=== PATIENT | female | born 1970 | race Caucasian/White ===

== ENCOUNTER → 2021-07-19 | Outpatient (CLI) | payer OTHER, SELFPAY ==
[2021-07-19 12:49] LABS: ALB/GLOB Ratio 0.8 RATIO (0.9-2.4); AST(SGOT) 27 U/L (15-37); Alanine Aminotransfer ALT/SGPT 53 U/L (13-56); Albumin, Serum 3.3 g/dL (3.2-5.0); Alkaline Phosphatase 96 U/L (45-117); Anion Gap 6 (5-15); BUN 10 mg/dL (7-18); BUN/Creat Ratio 12.5 RATIO (10-20); Calcium,Total 9.3 mg/dL (8.5-10.1); Chloride 103 mmol/L (98-107); EST Glomerular Filtration Rate 81 mL/min (>60); Est Glom Filt Rate - Afr Amer 98 mL/min (>60); Glucose 195 mg/dL (74-106); Potassium 4.5 mmol/L (3.5-5.1); Protein, Total 7.3 g/dL (6.4-8.2); Sodium Level 137 mmol/L (136-145)
[2021-07-19 13:19] LABS: Hemoglobin A1c 7.5 % (3.8-5.6)
== END | disposition home or self-care (01) ==
LOC: BIMLAB 07:53
DX: E11.9 Type 2 diabetes mellitus without complications (principal); E78.5 Hyperlipidemia, unspecified; I10 Essential (primary) hypertension; E55.9 Vitamin D deficiency, unspecified
CPT/HCPCS: 36415; 80053; 83036

== ENCOUNTER → 2022-03-01 | Outpatient (CLI) | payer OTHER, SELFPAY ==
[2022-03-01 07:07] LABS: Absolute Lymphocyte Count 2.39 X10^3/uL (0.83-4.51); Absolute Neutrophil Count 5.9 X10^3/uL (2.0-7.7); Basophil# 0.07 X10^3/uL; Basophil% 0.8 % (0-1); Eosinophil# 0.16 X10^3/uL; Eosinophils% 1.7 % (0-5); Hematocrit 40.9 % (37-47); Lymphocyte # 2.39 X10^3/ul (0.83-4.51); Lymphocyte % 26.1 % (19-41); Mean Corp Hgb Conc 31.8 g/dL (32-36); Mean Corpuscular Hgb 29.5 pg (27.0-32.0); Mean Platelet Vol. 10.8 fl (6.2-12.0); Monocyte# 0.52 X10^3/uL; Monocyte% 5.7 % (0-10); NRBC Flagged by Analyzer 0 % (0-5); Neutrophil # 5.89 X10^3/uL (2.7-7.7); Neutrophil % 64.4 % (47-70); Platelet Count 272 K/mm3 (150-450); RBC Distribution Width CV 12.3 % (11.6-14.6); White Blood Count 9.2 K/mm3 (4.4-11.0)
[2022-03-01 07:37] LABS: Microalbumin,Random Urine 22.5 mg/L (NO RANGE EST.)
[2022-03-01 07:41] LABS: ALB/GLOB Ratio 0.8 RATIO (0.9-2.4); AST(SGOT) 18 U/L (15-37); Alanine Aminotransfer ALT/SGPT 38 U/L (13-56); Albumin, Serum 3.1 g/dL (3.2-5.0); Alkaline Phosphatase 83 U/L (45-117); Anion Gap 9 (5-15); BUN 10 mg/dL (7-18); BUN/Creat Ratio 11.7 RATIO (10-20); Calcium,Total 8.8 mg/dL (8.5-10.1); Chloride 102 mmol/L (98-107); Cholesterol 147 mg/dL (200); Creatinine, Serum 0.86 mg/dL (0.55-1.02); EST Glomerular Filtration Rate 75 mL/min (>60); Est Glom Filt Rate - Afr Amer 90 mL/min (>60); Glucose 197 mg/dL (74-106); High Density Lipoprotein 75 mg/dL; Potassium 4.3 mmol/L (3.5-5.1); Protein, Total 7.1 g/dL (6.4-8.2); Sodium Level 138 mmol/L (136-145); Thyroid Stim Hormone (TSH) 2.94 uIU/mL (0.358-3.74); Triglycerides 153 mg/dL; Very Low Density Lipoprotein 31 mg/dL (5-40)
[2022-03-01 07:59] LABS: Vitamin B12 835 pg/mL (211-911); Vitamin D,25 Hydroxy 43.4 ng/mL
[2022-03-01 08:12] LABS: Hemoglobin A1c 8.1 % (3.8-5.6)
== END | disposition home or self-care (01) ==
PROVIDERS: PCP Family Medicine; Referring Provider Family Medicine; Visit Provider Family Medicine
DX: E11.65 Type 2 diabetes mellitus with hyperglycemia (principal); E78.5 Hyperlipidemia, unspecified; E53.8 Deficiency of other specified B group vitamins; E55.9 Vitamin D deficiency, unspecified
CPT/HCPCS: 36415; 80053; 80061; 82043; 82306; 82570; 82607; 83036; 84443; 85025

== ENCOUNTER → 2022-08-27 | Outpatient (CLI) | payer OTHER, SELFPAY ==
--- NOTE | 2022-08-27 07:25 | BI_ITS ---
MAMMOGRAPHY - BILATERAL SCREENING 3-D TOMOSYNTHESIS REASON FOR EXAM: Female, 52 years old. Routine screening PERTINENT HISTORY: No significant family history. TECHNIQUE: 2-D mammograms and 3-D Tomosynthesis of the breast (s) were performed. CAD was performed. COMPARISON: 01/14/2020 FINDINGS: The breast composition is almost entirely fat. Scattered benign calcifications are seen. No dense spiculated masses or suspicious microcalcifications are identified. No architectural distortion is identified. There is no skin thickening or retraction. There has been no significant change since the prior study. BI/SCRN MAMM (CAD)W/RAQUEL BILAT IMPRESSION: No mammographic signs of malignancy. Routine yearly mammograms recommended. ASSESSMENT CATEGORY: BIRADS Category 1: Negative. A letter regarding these results will be sent to the patient by the facility within 30 days. FOLLOW UP RECOMMENDATION: Yearly follow up mammogram recommended. (A) Approximately 10% of breast cancers are not detected by mammography. A normal mammogram should not delay biopsy of a clinically suspicious abnormality. Electronically Signed: Luis Felipe Aldridge MD at 10:25 EDT ,
== END | disposition home or self-care (01) ==
LOC: OPBI 07:24
PROVIDERS: PCP Internal Medicine; Referring Provider Internal Medicine; Visit Provider Internal Medicine
DX: Z12.31 Encounter for screening mammogram for malignant neoplasm of breast (principal)
CPT/HCPCS: 77063; 77067

== ENCOUNTER 2022-10-26 18:48 | Emergency (ER) | payer OTHER, SELFPAY ==
[2022-10-26 18:49] VITALS: BP 128/71; PULSE 102; RESP 18; TEMP 36.1; O2SAT 95; BMI 44.4
[2022-10-26] MEDS: Albuterol 2.5 MG/3 ML VIAL.NEB. INHALATION (19:17)
[2022-10-26] MEDS: Ipratropium/Albuterol Sulfate 3 ML AMPUL.NEB INHALATION (19:17)
[2022-10-26 19:18] VITALS: PULSE 102; RESP 18
[2022-10-26 19:38] VITALS: BP 135/60; PULSE 98; RESP 18; TEMP 37; O2SAT 95
--- NOTE | 2022-10-26 19:45 | RAD_ITS ---
INDICATION: cough, sob EXAMINATION/TECHNIQUE: X-RAY - XR Chest 2 Views COMPARISON: None. FINDINGS: LINES/DEVICES: None. LUNGS: No consolidation, edema or effusion. No pneumothorax. MEDIASTINUM AND CARDIOVASCULAR STRUCTURES: Cardiac silhouette not enlarged. Central airways and mediastinal contour are within normal limits. BONES AND SOFT TISSUES: Mild to moderate spinal degenerative change. RAD/Chest PA and Lateral IMPRESSION: No radiographic evidence of acute cardiopulmonary disease. Electronically Signed: David Layton MD at 20:00 EDT ,
--- NOTE | 2022-10-26 19:49 | EX.ED.DYSGE1 ---
HPI <KOJO Walls - Last Filed: 10/26/22 21:09> History of Present Illness Chief Complaint: Shortness of Breath Narrative Narrative: Presenting today due to, not feeling well. She reports that she has a scratchy throat, right-sided back and rib pain with coughing, headache, fatigue, and a cough that she has had for the past 2 days. She was around her mom in the beginning of October who was positive for COVID. She reports having chills and sweats intermittently but did not check her temperature. She reports having mild shortness of breath on exertion without any chest pain. PMH includes diabetes mellitus and asthma. PFSH <KOJO Walls - Last Filed: 10/26/22 21:09> PFS Medical History Agoraphobia Anxiety Asthma Binge eating disorder Depression DMII (diabetes mellitus, type 2) Ectopic GERD (gastroesophageal reflux disease) High triglycerides History of back problems History of pneumonia Hypercholesterolemia IBS (irritable bowel syndrome) Insomnia Kidney stones Major depressive disorder Migraines Non-alcoholic fatty liver disease Obesity JESÚS (obstructive sleep apnea) Osteoarthritis of lumbar spine Pityriasis versicolor Post-menopausal PTSD (post-traumatic stress disorder) Renal cyst, acquired, right Seasonal allergies Vitamin B deficiency Vitamin D deficiency Home Medications Lactobacillus rhamnosus GG 20 billion cell capsule (Probiotic Digestive Care) cell PO 04/22/22 [History Last Taken Unknown] albuterol sulfate 90 mcg/actuation aerosol inhaler (Proventil HFA) 2 puff inhalation Q6H PRN 04/22/22 [History Last Taken Unknown] cholecalciferol (vitamin D3) 250 mcg (10,000 unit) capsule 250 mcg PO DAILY 04/22/22 [History Last Taken Unknown] hydroxyzine pamoate 25 mg capsule 25 mg PO .QID PRN 04/22/22 [History Last Taken Unknown] insulin detemir U-100 100 unit/mL subcutaneous solution (Levemir U-100 Insulin) 10 unit subcut QHS 04/22/22 [History Last Taken Unknown] ipratropium 0.5 mg-albuterol 3 mg (2.5 mg base)/3 mL nebulization soln 3 ml inhalation Q4H PRN 04/22/22 [History Last Taken Unknown] omega [id number]-fish oil 900 mg-1,400 mg capsule,delayed release (Fish Oil) 1,000 cap PO 04/22/22 [History Last Taken Unknown] ondansetron HCl 8 mg tablet 8 mg PO TID PRN 04/22/22 [History Last Taken Unknown] riboflavin (vitamin B2) 400 mg tablet 400 mg PO DAILY 04/22/22 [History Last Taken Unknown] rizatriptan 10 mg tablet 10 mg PO ONCE 04/22/22 [History Last Taken Unknown] wheat dextrin 3 gram/4 gram oral powder (Benefiber Sugar Free (dextrin)) 1 packet PO DAILY 04/22/22 [History Last Taken Unknown] cyclobenzaprine 5 mg tablet 5 mg PO TID PRN muscle spasm #30 tabs 04/30/22 [Rx Last Taken Unknown] atorvastatin 20 mg tablet 20 mg PO QHS #90 tabs 05/06/22 [Rx Last Taken Unknown] fluoxetine 40 mg capsule 40 mg PO QAM #90 caps 05/06/22 [Rx Last Taken Unknown] cariprazine 1.5 mg capsule 1.5 mg PO DAILY #30 caps 07/30/22 [Rx Last Taken Unknown] nystatin 100,000 unit/gram topical powder 1 applic topical TID PRN rash #15 grams 08/27/22 [Rx Last Taken Unknown] ubrogepant 100 mg tablet (Ubrelvy) 100 mg PO QDAY #14 tabs 08/27/22 [Rx Last Taken Unknown] tirzepatide 10 mg/0.5 mL subcutaneous pen injector 10 mg (0.5 mL) subcut QWEEK #2 mL 09/18/22 [Rx Last Taken Unknown] lisinopril 5 mg tablet See Rx Instructions .Route .COMPLEX #90 tabs 10/01/22 [Rx Last Taken Unknown] trazodone 50 mg tablet See Rx Instructions .Route .COMPLEX #90 tabs 10/01/22 [Rx Last Taken Unknown] topiramate 50 mg tablet See Rx Instructions .Route .COMPLEX #30 tabs 10/03/22 [Rx Last Taken Unknown] benzonatate 100 mg capsule 100 mg PO TID 5 days #15 caps 10/26/22 [Rx Last Taken Unknown] Allergy/AdvReac Type Severity Reaction Status Date / Time morphine Allergy Severe Vomiting Verified 10/26/22 18:50 nalbuphine [From Nubain] Allergy Severe Other Verified 10/26/22 18:50 prednisone Allergy Severe Hives Verified 10/26/22 18:50 Family History Mother Anxiety Asthma Arthritis Bowel disease Breast cancer Depression Myocardial infarction Heart disease Hypertension Mental disorder Sister Anxiety Asthma Depression Seizure disorder Grandmother Arthritis Diabetes Colon cancer Brother Asthma History of blood clots Mental disorder tbi Son Precancerous skin lesion Surgical History History of esophagogastroduodenoscopy History of partial hysterectomy History of total hysterectomy Hx of cholecystectomy Social History household members: spouse current occupational status: employed current occupation: [employer] Smoking Status: Never smoker Electronic Cigarette Use: not used alcohol intake: current alcohol intake frequency: holidays/special occasions only substance use type: does not use what type of physical activity do you participate in: none do you feel safe at home: Yes ROS <KOJO Walls - Last Filed: 10/26/22 21:09> ROS ED Constitutional Constitutional ED: Reports chills and sweats ENT ENT ED: Reports sore throat Cardiovascular Cardiovascular: Denies chest pain Respiratory/Chest Respiratory/Chest: Reports cough and dyspnea on exertion Gastrointestinal Gastrointestinal: Denies abdominal pain, nausea or vomiting Musculoskeletal Musculoskeletal: Reports back pain; Denies arthralgias or myalgias Integumentary Denies rash Neurologic Neurologic: Reports headache(s); Denies weakness EXAM <KOJO Walls - Last Filed: 10/26/22 21:09> Physical Exam Const Vital Signs: 10/26/22 18:49 10/26/22 19:03 10/26/22 19:18 Temperature 97 F L Temperature Source Temporal Pulse Rate 102 H 102 H Respiratory Rate 18 18 Respiratory Effort Short of Breath Respiratory Depth Normal Respiratory Pattern Normal Blood Pressure 128/71 H Blood Pressure Mean 90 Pulse Ox 95 Oxygen Delivery Method Room Air 10/26/22 19:38 10/26/22 21:11 10/26/22 21:11 Temperature 98.6 F Temperature Source Oral Pulse Rate 98 94 94 Respiratory Rate 18 18 17 Respiratory Effort Respiratory Depth Respiratory Pattern Blood Pressure 135/60 H 128/73 H 128/73 H Blood Pressure Mean 85 91 Pulse Ox 95 96 96 Oxygen Delivery Method Room Air Room Air Positive well nourished, well developed and no apparent distress General Appearance ED: well developed HEENT Reports normocephalic and head/scalp atraumatic HEENT Narrative: Posterior pharynx clear without any erythema or tonsillar exudate, uvula midline, no trismus, no drooling, no tonsillar abscess. Mouth ED: Yes moist mucous membranes normal Eyes PERRL and EOMs intact bilaterally Neck full ROM and supple Chest Wall inspection of chest normal Resp normal respiratory effort and clear to auscultation bilaterally Cardio regular rate and regular rhythm GI soft to palpation, non-tender, non-distended and no masses Back/Spine normal ROM and normal to inspection Back/Spine Narrative: Right-sided thoracic paraspinal tenderness to palpation, no midline spinal tenderness. Extremity normal to inspection and full ROM Neuro oriented x3, CN's II-XII intact bilaterally, moves all extremities, no focal motor deficits and no sensory deficits noted Sensorium / Orientation: awake and alert Psych mental status grossly normal and thought process normal Skin no rashes or lesions noted and no wounds <Dr. Prasanth Oleary MD - Last Filed: 10/26/22 21:56> Physical Exam Const Vital Signs: 10/26/22 18:49 10/26/22 19:03 10/26/22 19:18 Temperature 97 F L Temperature Source Temporal Pulse Rate 102 H 102 H Respiratory Rate 18 18 Respiratory Effort Short of Breath Respiratory Depth Normal Respiratory Pattern Normal Blood Pressure 128/71 H Blood Pressure Mean 90 Pulse Ox 95 Oxygen Delivery Method Room Air 10/26/22 19:38 10/26/22 21:11 10/26/22 21:11 Temperature 98.6 F Temperature Source Oral Pulse Rate 98 94 94 Respiratory Rate 18 18 17 Respiratory Effort Respiratory Depth Respiratory Pattern Blood Pressure 135/60 H 128/73 H 128/73 H Blood Pressure Mean 85 91 Pulse Ox 95 96 96 Oxygen Delivery Method Room Air Room Air MDM <KOJO Walls - Last Filed: 10/26/22 21:09> [facility] Narrative Medical decision making narrative: Patient presenting with flulike symptoms that she has had for the past 2 days. She is well-appearing and in no acute distress, she is nontoxic, vitals noted, she is afebrile. O2 saturation is 95% on room air. She reports pain to the right mid back and right lateral rib cage when coughing, does have tenderness to palpation to the right thoracic paraspinal muscles and right lateral rib cage without any crepitus. She does have a history of costochondritis, this could also be pleurisy from coughing or muscular in nature. COVID and flu swabs will be obtained. She will be given breathing treatments here. Chest x-ray obtained to rule out infiltrate and other cardiopulmonary abnormality. On reexamination patient reports improvement of her symptoms after the breathing treatments. X-ray negative for any acute findings. COVID and flu are negative. I do suspect that patient has a viral illness. She has been given instructions on supportive care measures and is to follow-up with her PCP. She will be discharged home in stable condition and is comfortable with plan. Radiography X-Ray: Read by ED Physician and Read by Radiologist Diagnostic Testing: Clinical Impression(s) from Imaging Studies Chest X-Ray 10/26/22 19:45 IMPRESSION: No radiographic evidence of acute cardiopulmonary disease. Electronically Signed: David Layton MD at 20:00 EDT , <Dr. Prasanth Oleary MD - Last Filed: 10/26/22 21:56> MDM Radiography Diagnostic Testing: Clinical Impression(s) from Imaging Studies Chest X-Ray 10/26/22 19:45 IMPRESSION: No radiographic evidence of acute cardiopulmonary disease. Electronically Signed: David Layton MD at 20:00 EDT , Treatment and Re-Evaluation Comments:: I saw the patient with the [facility]. I performed a [id number] evaluation. Patient is not feeling well. Reports cough and shortness of breath as well as body aches. Vital signs reviewed. Heart regular. Lungs clear. Skin appears normal. No acute distress. Testing as above. X-ray was reviewed by the radiologist and myself and showed no acute abnormalities. COVID and influenza testing were negative. Patient is not having any chest pain or cardiac symptoms. No history of DVT or PE. No leg swelling or calf pain. No hemoptysis. This all sounds infectious and she will be treated as such, symptomatically. Vital signs, exam are reassuring. Discharged home. Return for any new or worsening issues. Impression #1 URI Discharge Plan Triage Chief Complaint: Shortness of Breath ED Midlevel Provider: Carmina Farris ED Provider: Prasanth Oleary Dx/Rx/DC Orders Clinical Impression: Viral illness, Pleurisy Instructions: ED Pleurisy, ED Viral Syndrome (Adult) Prescriptions: New benzonatate 100 mg capsule 100 mg PO TID 5 Days Qty: 15 0RF No Action cyclobenzaprine 5 mg tablet 5 mg PO TID PRN (Reason: muscle spasm) Qty: 30 1RF Levemir U-100 Insulin 100 unit/mL solution 10 unit subcut QHS Fish Oil 900-1,400 mg capsule,delayed release(DR/EC) 1,000 cap PO riboflavin (vitamin B2) 400 mg tablet 400 mg PO DAILY cholecalciferol (vitamin D3) 250 mcg (10,000 unit) capsule 250 mcg PO DAILY Probiotic Digestive Care 20 billion cell capsule PO Benefiber Sugar Free (dextrin) 3 gram/4 gram powder 1 packet PO DAILY Rx Instructions: mix into at least 4 oz water or juice before administering albuterol sulfate [Proventil HFA] 90 mcg/actuation HFA aerosol inhaler 2 puff inhalation Q6H PRN rizatriptan 10 mg tablet 10 mg PO ONCE Rx Instructions: as a single dose ipratropium-albuterol 0.5 mg-3 mg(2.5 mg base)/3 mL solution for nebulization 3 ml inhalation Q4H PRN hydroxyzine pamoate 25 mg capsule 25 mg PO .QID PRN ondansetron HCl 8 mg tablet 8 mg PO TID PRN cariprazine 1.5 mg capsule 1.5 mg PO DAILY Qty: 30 2RF atorvastatin 20 mg tablet 20 mg PO QHS Qty: 90 2RF fluoxetine 40 mg capsule 40 mg PO QAM Qty: 90 3RF Ubrelvy 100 mg tablet 100 mg PO QDAY Qty: 14 2RF Rx Instructions: as a single dose; may repeat once in >=2 hours after first dose if needed nystatin 100,000 unit/gram powder 1 applic topical TID PRN (Reason: rash) Qty: 15 0RF tirzepatide 10 mg/0.5 mL pen injector 10 mg subcut QWEEK Qty: 2 1RF Rx Instructions: failed ozempic trazodone 50 mg tablet See Rx Instructions .ROUTE .COMPLEX Qty: 90 1RF Dose Instruction: TAKE 1 TABLET BY MOUTH AT BEDTIME NEEDED INSOMNIA Rx Instructions: TAKE 1 TABLET BY MOUTH AT BEDTIME NEEDED INSOMNIA lisinopril 5 mg tablet See Rx Instructions .ROUTE .COMPLEX Qty: 90 0RF Dose Instruction: TAKE 1 TABLET BY MOUTH EVERY DAY Rx Instructions: TAKE 1 TABLET BY MOUTH EVERY DAY topiramate 50 mg tablet See Rx Instructions .ROUTE .COMPLEX Qty: 30 2RF Dose Instruction: TAKE 1 TABLET BY MOUTH EVERY DAY Rx Instructions: TAKE 1 TABLET BY MOUTH EVERY DAY Stand Alone Forms: ED Work / School Excuse Primary Care Provider: Stacey Talbert Referrals: Stacey Talbert MD [Primary Care Provider] - 5-7 Days Activity Restrictions/Additional Instructions: Follow-up with your PCP and return for any worsening of your symptoms. You could try [id number] medications for your cough. Trial anti-inflammatories such as Advil or Aleve for your pain. Disposition Disposition: Home, Self Care Discharge Date/Time: 10/26/22 21:12
[2022-10-26 21:11] VITALS: BP 128/73; PULSE 94; RESP 17; RESP 18; O2SAT 96
== END 2022-10-26 21:12 | disposition home or self-care (01) ==
PROVIDERS: Emergency Provider Emergency Medicine; PCP Internal Medicine; Visit Provider Emergency Medicine
DX: R09.1 Pleurisy (principal); E11.9 Type 2 diabetes mellitus without complications; B34.9 Viral infection, unspecified; R07.81 Pleurodynia; E78.00 Pure hypercholesterolemia, unspecified; J45.909 Unspecified asthma, uncomplicated; R51.9 Headache, unspecified; M54.9 Dorsalgia, unspecified; R06.02 Shortness of breath
CPT/HCPCS: 71046; 87428; 94640; 99282

== ENCOUNTER 2023-03-25 05:43 | Day surgery (SDC) | payer OTHER, SELFPAY ==
[2023-03-25] VITALS (8 sets, daily range): BP systolic 111–138; BP diastolic 65–94; PULSE 78–92; RESP 16; TEMP 36.3–37; O2SAT 94–100; BMI 45.3
--- OUTSIDE RECORDS SUMMARY | 2023-03-25 05:47 | XMS RPT_ITS | CCD ---
Author Name Unknown Address [id number] [place] [address] Organization [facility] Care Team Providers Care [employer] Field Specialist Name Role Phone Osorio Dickinson Primary Care Provider MATTHIAS BAUTISTA Referring Unavailable OSORIO DICKINSON Primary Care Rhiannon Dickinson MD, Osorio Patterson Primary Care Provid er SAVANNAH RUTLEDGE Referring Unavailable MATTHIAS BAUTISTA Attending Unavailable OSORIO DICKINSON Primary Care Rhiannon DICKINSON, OSORIO PATTERSON Primary Care SAVANNAH Damon Attending Unavailable OSORIO DICKINSON Referring Rhiannon DICKINSON, OSORIO PATTERSON Primary Care SAVANNAH Damon Referring Unavailable OSORIO DICKINSON Primary Care Rhiannon DICKINSON, OSORIO PATTERSON Primary Care Rhiannon singer Allergies Allergy Classification Reported Allergen(s) Allergy Type Date of Onset Reaction(s) Facility (18 sources) lamoTRIgine; Translations: [LAMOTRIGINE] Drug Allergy 10-23-2015 Unknown [place], [place] (18 sources) liraglutide; Translations: [LIRAGLUTIDE] Drug Allergy 10-23-2015 Unknown [place] (18 sources) Morphine; Translations: [MORPHINE] Drug Allergy 02-10-2015 Nausea Only, GI Upset [place], [place] (18 sources) Nalbuphine; Translations: [NALBUPHINE HCL] Drug Allergy 02-10-2015 Other (See Comments), Intolerance [place] (18 sources) predniSONE; Translations: [PREDNISONE] Drug Allergy 02-10-2015 Hives [place], [place] (18 sources) Valproate; Translations: [DIVALPROEX SODIUM] Drug Allergy 10-23-2015 Unknown [place] Medications Current Medications Medication Drug Class(es) Dates Sig (Normalized) Sig (Original) estradiol 1 mg oral tablet (5 sources) Estrogen take 1 tablet by mouth once daily estradiol (ESTRACE) 1 MG tablet Take 1 mg by mouth daily 0 Active ibuprofen 600 mg oral tablet (3 sources) Nonsteroidal Anti-inflammatory Drug Start: 02-05-2020 take 1 tablet by mouth every six hours as needed for pain ibuprofen (ADVIL;MOTRIN) 600 MG tablet Take 1 tablet by mouth every 6 hours as needed for Pain 30 tablet 1 02/05/2020 Active insulin detemir 100 unt/ml injectable solution (5 sources) Insulin Analog insulin detemir (LEVEMIR) 100 UNIT/ML injection vial Inject 5 Units into the skin nightly 0 Active Completed/Discontinued Medications Medication Drug Class(es) Dates Sig (Normalized) Sig (Original) [id number] 200 actuat albuterol 0.09 mg/actuat metered dose inhaler (15 sources) beta2-Adrenergic Agonist take 2 puff(s) by inhalation every six hours as needed albuterol HFA (PROVENTIL HFA, VENTOLIN HFA) 90 mcg/actuation inhaler Inhale 2 Puffs as instructed every 6 hours as needed. 0 Active Problems Active Problems Problem Classification Problem Date Documented Da te Episodic/Chronic Anxiety disorders (13 sources) Posttraumatic stress disorder; Translations: [Post-traumatic stress disorder, unspecified] Onset: 6 10-23-2015 Chronic Asthma (11 sources) Exacerbation of asthma; Translations: [Unspecified asthma with (acute) exacerbation] Onset: 6 02-11-2015 Chronic Diabetes mellitus without complication (16 sources) Diabetes mellitus; Translations: [Type 2 diabetes mellitus without complications] Onset: 6 10-23-2015 Chronic Disorders of lipid metabolism (8 sources) Mixed hyperlipidemia; Translations: [Mixed hyperlipidemia] Onset: 2 Chronic Esophageal disorders (8 sources) Gastroesophageal reflux disease without esophagitis; Translations: [Gastro-esophageal reflux disease without esophagitis] Onset: 2 Chronic Fluid and electrolyte disorders (1 source) Dehydration; Translations: [Dehydration] Episodic Headache; including migraine (8 sources) Refractory migraine; Translations: [Other migraine, intractable, without status migrainosus] Onset: 2 Chronic Headache; including migraine (1 source) Headache; Translations: [Nonintractable headache, unspecified chronicity pattern, unspecified headache type] Episodic Immunizations and screening for infectious disease (1 source) Contact with and (suspected) exposure to other viral communicable diseases; Translations: [Contact with or exposure to other viral diseases] Episodic Menopausal disorders (20 sources) Menopausal symptom; Translations: [Menopausal and female climacteric states] Onset: 6 05-24-2015 Chronic Mood disorders (10 sources) Bipolar disorder in partial remission; Translations: [Bipolar disorder, currently in remission, most recent episode unspecified] Onset: 6 02-11-2015 Chronic Nausea and vomiting (2 sources) Nausea and vomiting; Translations: [Nausea with vomiting, unspecified] Episodic Other female genital disorders (10 sources) Pain in female genitalia on intercourse; Translations: [Unspecified dyspareunia] Onset: 6 05-24-2015 Chronic Other gastrointestinal disorders (2 sources) Irritable bowel syndrome with diarrhea; Translations: [Irritable bowel syndrome with diarrhea] Chronic Other gastrointestinal disorders (1 source) Irritable bowel syndrome with diarrhea; Translations: [Irritable bowel syndrome with diarrhea] Onset: 2 Chronic Other gastrointestinal disorders (12 sources) Dysphagia; Translations: [Dysphagia, unspecified] Onset: 2 Episodic Other gastrointestinal disorders (1 source) Dysphagia, unspecified; Translations: [Dysphagia, unspecified type] Onset: 2 Episodic Other liver diseases (8 sources) Steatosis of liver; Translations: [Fatty (change of) liver, not elsewhere classified] Onset: 2 Chronic Other nutritional; endocrine; and metabolic disorders (8 sources) Body mass index 40+ - severely obese; Translations: [Body mass index (BMI) 40.0-44.9, adult] Onset: 2 Chronic Other upper respiratory infections (8 sources) H/O: infectious disease; Translations: [Acute upper respiratory infection, unspecified] Onset: 2 Episodic Residual codes; unclassified (11 sources) Obstructive sleep apnea syndrome; Translations: [Obstructive sleep apnea (adult) (pediatric)] Onset: 6 02-11-2015 Chronic Residual codes; unclassified (1 source) Influenza-like symptoms; Translations: [Other general symptoms and signs] Episodic Spondylosis; intervertebral disc disorders; other back problems (8 sources) Low back pain; Translations: [Low back pain without sciatica, unspecified back pain laterality, unspecified chronicity] Onset: 2 Episodic Unclassified (2 sources) Sprain of right ankle; Translations: [Sprain of right ankle] Onset: 8 05-25-2017 Unclassified (2 sources) Sprain of right foot; Translations: [Sprain of right foot] Onset: 8 05-25-2017 Past or Other Problems Problem Classification Problem Date Documented Da te Episodic/Chronic Other screening for suspected conditions (not mental disorders or infectious disease) (10 sources) Patient encounter status; Translations: [Encounter for screening for malignant neoplasm of cervix] Onset: 05-24-2015 05-24-2015 Episodic Pneumonia (except that caused by tuberculosis or sexually transmitted disease) (6 sources) Infective pneumonia; Translations: [Pneumonia, unspecified organism] Onset: 02-11-2015 02-11-2015 Episodic Sprains and strains (6 sources) Sprain of right ankle; Translations: [Sprain of unspecified ligament of right ankle, initial encounter] Onset: 05-25-2017 05-25-2017 Episodic Results Test Name Value Interpretation Reference Range Facil ity Vital Signs Date Time Vital Sign Value Performing Clinician Chad de la torre 01-25-2022 08:45-0500 Body temperature 97.5 [degF] Matthias Bautista MD Work Phone: [facility] 01-25-2022 08:45-0500 Diastolic blood pressure 84 mm[Hg] Matthias Bautista MD Work Phone: [facility] 01-25-2022 08:45-0500 Heart rate 70 /min Matthias Bautista MD Work Phone: [facility] 01-25-2022 08:45-0500 Respiratory rate 16 /min Matthias Bautista MD Work Phone: [facility] 01-25-2022 08:45-0500 SaO2% (BldA) [Mass fraction] 95 % Matthias Bautista MD Work Phone: [facility] 01-25-2022 08:45-0500 Systolic blood pressure 127 mm[Hg] Matthias Bautista MD Work Phone: [facility] 01-18-2022 10:32-0500 Body height 163.8 cm Pacc 1 Work Phone: [facility] 01-18-2022 10:32-0500 Body temperature 97.81 [degF] Pacc 1 Work Phone: [facility] 01-18-2022 10:32-0500 Body weight 118.39 kg Pacc 1 Work Phone: [facility] 01-18-2022 10:32-0500 Diastolic blood pressure 64 mm[Hg] Pacc 1 Work Phone: [facility] 01-18-2022 10:32-0500 Heart rate 85 /min Pacc 1 Work Phone: [facility] 01-18-2022 10:32-0500 Respiratory rate 16 /min Pacc 1 Work Phone: [facility] 01-18-2022 10:32-0500 SaO2% (BldA) [Mass fraction] 96 % Pacc 1 Work Phone: [facility] 01-18-2022 10:32-0500 Systolic blood pressure 124 mm[Hg] Pacc 1 Work Phone: [facility] 01-09-2022 15:39-0500 Body temperature 98.2 [degF] Charissa Rodriguez PA-C Work Phone: [facility] 01-09-2022 15:39-0500 Body weight 118.39 kg Charissa Rodriguez PA-C Work Phone: [facility] 01-09-2022 15:39-0500 Diastolic blood pressure 66 mm[Hg] Charissa Rodriguez PA-C Work Phone: [facility] 01-09-2022 15:39-0500 Heart rate 107 /min Charissa Slabaugh PA-C Work Phone: [facility] 01-09-2022 15:39-0500 Respiratory rate 16 /min Charissa Slabaugh PA-C Work Phone: [facility] 01-09-2022 15:39-0500 SaO2% (BldA) [Mass fraction] 96 % Charissa Slabaugh PA-C Work Phone: [facility] 01-09-2022 15:39-0500 Systolic blood pressure 123 mm[Hg] Charissa Slabaugh PA-C Work Phone: [facility] 11-09-2021 12:41-0400 Body height 162.6 cm Savannah Aamir PA-C Work Phone: [facility] 11-09-2021 12:41-0400 Body weight 119.75 kg Savannah Aamir PA-C Work Phone: [facility] 11-09-2021 12:41-0400 Diastolic blood pressure 80 mm[Hg] Savannah Aamir PA-C Work Phone: [facility] 11-09-2021 12:41-0400 Heart rate 88 /min Savannah Aamir PA-C Work Phone: [facility] 11-09-2021 12:41-0400 Systolic blood pressure 128 mm[Hg] Savannah Aamir PA-C Work Phone: [facility] 05-03-2021 00:13-0400 Body mass index (BMI) [Ratio] 43.6 kg/m2 Jose Wren MD Work Phone: [facility] 05-03-2021 00:13-0400 Body temperature 98.71 [degF] Jose Wren MD Work Phone: [facility] 05-03-2021 00:13-0400 Body weight 115.21 kg Jose Wren MD Work Phone: [facility] 05-03-2021 00:13-0400 Diastolic blood pressure 95 mm[Hg] Jose Wren MD Work Phone: [facility] 05-03-2021 00:13-0400 Heart rate 113 /min Jose Wren MD Work Phone: [facility] 05-03-2021 00:13-0400 Respiratory rate 18 /min Jose Wren MD Work Phone: [facility] 05-03-2021 00:13-0400 SaO2% (BldA) [Mass fraction] 98 % Jose Wren MD Work Phone: [facility] 05-03-2021 00:13-0400 Systolic blood pressure 132 mm[Hg] Jose Wren MD Work Phone: [facility] Encounters Encounter Date Encounter Type Care Provider Facility Start: 02-12-2022 Telephone encounter Norman Diego MD Work Phone: [facility] GENERAL SURGERY DEPARTMENT Procedures Date Procedure Procedure Detail Performing Clinician Start: 01-25-2022 Gluc bld gluc mntr dev cleared fda spec home use Matthias Bautista MD Work Phone: Start: 01-25-2022 Esophagogastroduodenoscopy transoral diagnostic Savannah Rutledge PA-C Work Phone: Start: 01-25-2022 Colonoscopy flx dx w/collj spec when pfrmd Savannah Rutledge PA-C Work Phone: Start: 01-25-2022 Gluc bld gluc mntr dev cleared fda spec home use Matthias Bautista MD Work Phone: Start: 01-25-2022 Colonoscopy Matthias Bautista MD Work Phone: Start: 09-04-2021 Screening digital breast tomosynthesis bi Osorio Dickinson MD Work Phone: Start: 06-07-2021 [employer]x spine thoracic 3 views Leatha clemons [employer] Other Phone: Start: 05-03-2021 Comprehensive metabolic panel Jose scott MD Work Phone: Start: 05-03-2021 Ecg routine ecg w/least 12 lds w/i&r Jose Wren MD Work Phone: Start: 10-09-2018 Screening digital breast tomosynthesis bi Osorio Dickinson Work Phone: Plan of Treatment Date Care Activity Detail Author Start: 02-15-2037 Pneumococcal 0-64 years Vaccine (2 of 2 - PPSV23) Pneumococcal 0-64 years Vaccine (2 of 2 - PPSV23) [facility] Start: 07-11-2031 DTaP/Tdap/Td vaccine (2 - Td or Tdap) DTaP/Tdap/Td vaccine (2 - Td or Tdap) [facility] Start: 01-25-2023 Colonoscopy COLONOSCOPY [facility] Start: 01-25-2023 COLORECTAL CANCER SCREENING COLORECTAL CANCER SCREENING [facility] Start: 03-21-2022 Hepatitis B screening URINE ALBUMIN:CREATININE RATIO [facility] Start: 03-21-2022 Lipid panel [facility] Start: 03-21-2022 Urine screening for protein Diabetic microalbuminuria test [facility] Start: 02-10-2022 DEPRESSION ASSESSMENT DEPRESSION ASSESSMENT [facility] Start: 10-11-2021 Influenza vaccination [facility] Start: 06-18-2021 Hemoglobin A1c measurement A1C test (Diabetic or Prediabetic) [facility] Start: 04-27-2021 COVID-19 VACCINE (4 - Booster for Pfizer series) COVID-19 VACCINE (4 - Booster for Pfizer series) [facility] Start: 02-10-2021 DEPRESSION ASSESSMENT DEPRESSION ASSESSMENT [facility] Start: 10-12-2019 Influenza vaccination Flu vaccine (#1) [place] Start: 07-05-2019 HbA1c (Bld) [Mass fraction] A1C test (Diabetic or Prediabetic) [place] Start: 07-05-2019 Lipid panel Lipid screen [place] Start: 07-05-2019 Lipid screen Lipid screen [place] Start: 10-11-2018 Influenza vaccination Flu vaccine (#1) [place] Start: 10-04-2018 A1C test (Diabetic or Prediabetic) A1C test (Diabetic or Prediabetic) [place] Start: 02-15-2017 COLOGUARD (FIT-DNA) COLOGUARD (FIT-DNA) [facility] Start: 02-15-2017 Colonoscopy COLONOSCOPY [facility] Start: 02-15-2017 COLORECTAL CANCER SCREENING COLORECTAL CANCER SCREENING [facility] Start: 02-15-[address] COLONOGRAPHY [facility] Start: 02-15-2017 FECAL OCCULT BLOOD FECAL OCCULT BLOOD [facility] Start: 02-15-2017 Screening for malignant neoplasm of colon [facility] Start: 02-15-2017 SIGMOIDOSCOPY SIGMOIDOSCOPY [facility] Start: 05-15-2015 Hemoglobin A1c/Hemoglobin.total in Blood HBA1C [facility] Start: 05-07-2013 Pneumococcal 0-64 years Vaccine (2 - PCV) Pneumococcal 0-64 years Vaccine (2 - PCV) [facility] Start: 2012 Mammography MAMMOGRAM [facility] Start: 02-15-2002 HPV TESTING HPV TESTING [facility] Start: 02-15-1993 Cervical cancer screen Cervical cancer screen [place] Start: 02-15-1993 PAP TESTING PAP TESTING [facility] Start: 02-15-1993 Screening for malignant neoplasm of cervix Cervical cancer screen [place] Start: 02-15-1991 DTaP/Tdap/Td vaccine (1 - Tdap) DTaP/Tdap/Td vaccine (1 - Tdap) [facility] Start: 02-15-1991 Hepatitis B Vaccine (1 of 3 - Risk 3-dose series) Hepatitis B Vaccine (1 of 3 - Risk 3-dose series) [facility] Start: 02-15-1991 Urine microalbumin profile DTAP,TDAP,TD (1 - Tdap) [facility] Start: 02-15-1990 ANNUAL PCP TEAM CHRONIC DISEASE VISIT ANNUAL PCP TEAM CHRONIC DISEASE VISIT [facility] Start: 02-15-1990 Diabetic microalbuminuria test Diabetic microalbuminuria test [place] Start: 02-15-1990 Diabetic retinal exam Diabetic retinal exam [facility] Start: 02-15-1990 Hepatitis B surface antibody level LDL CHOLESTEROL [facility] Start: 02-15-1990 Hepatitis C screening Hepatitis C screen [facility] Start: 02-15-1990 HEPATITIS C SCREENING HEPATITIS C SCREENING [facility] Start: 02-15-1990 HIV SCREENING HIV SCREENING [facility] Start: 02-15-1990 SPIROMETRY SPIROMETRY [facility] Start: 02-15-1987 HIV screen HIV screen [place] Start: 02-15-1987 HIV screening HIV screen [facility] Start: 1984 Depression Screen Depression Screen [facility] Start: 02-15-1982 [object Object] Diabetic foot exam [facility] Start: 02-15-1982 Diabetic foot examination Diabetic foot exam [facility] Start: 02-15-1982 Diabetic retinal exam Diabetic retinal exam [place] Start: 02-15-1982 Hepatitis C antibody, confirmatory test DILATED RETINAL EXAM [facility] Start: 02-15-1978 PNEUMOCOCCAL (1 - PCV) PNEUMOCOCCAL (1 - PCV) [facility] Start: 1972 HEPATITIS B (1 of 3 - 3-dose series) HEPATITIS B (1 of 3 - 3-dose series) [facility] Start: 1972 Hepatitis C screening Hepatitis C screen [facility] Calprotectin [Mass/m ass] in Stool CALPROTECTIN,FECAL Lab Routine Irritable bowel syndrome with diarrhea Ordered: 11/09/2021 [facility] Work Phone: Immunizations Immunization Date Immunization Notes Care Provider Maura ray 11-10-2015 Influenza Vaccine, unspecified formulation Osorio Vijaya [facility] 05-07-2012 pneumococcal polysaccharide vaccine, 23 valent Osorio Dickinson [place], [place] Payers Date Payer Category Payer Unknown MMO MMO [employer] [id number] 2020-Present [phone] [address] [place] [address] PPO [id number] 2020 Unknown [id number] 2017 Private Health Insurance [facility] xxxxxxxxx 2017-Present [phone] [address] [place] [address] xxxxxxxxx [id number] 2017 Private Health Insurance [id number] Social History Date Type Detail Facility Start: 05-24-2015 End: 01-22-2018 Tobacco smoking status NHIS Never smoker [facility] Start: 01-22-2018 Alcohol intake No [facility] Start: 1970 Sex Assigned At Not on file M [facility] Villanueva Start: 05-24-2015 End: 01-22-2018 Tobacco use and exposure Never used [facility] Start: 01-22-2018 End: 01-18-2022 Alcohol intake Current non-drinker of alcohol (finding) [facility] Start: 04-23-2021 End: 01-09-2022 Exposure to SARS-CoV-2 (event) Not sure [facility] Work Phone: Start: 01-18-2022 Alcohol Comment 2-3 times per year [facility] Clinical Notes 05-24-2015 to 02-12-2022 Telephone Encounter - Polly Chapin RN - 02/12/2022 1:47 PM ESTTelephone Encounter - Polly Chapin RN - 02/12/2022 9:47 AM ESTTelephone Encounter - Polly Chpain RN - 01/31/2022 4:07 PM EST Note Date & Type Note Facility 02-12-2022 Miscellaneous Notes Patient called back this afternoon and asked to reschedule her manometry. We rescheduled the patient on 03/19/22 at 8:00 AM. Patient has her instructions and will arrive at 7:30 AM. Polly Chapin RN Patient left a voicemail at 5:30 this morning stating she is ill and needs to cancel her manometry today. Endo informed of the cancellation. Polly Chapin RN documented in this encounter [facility] 01-31-2022 Miscellaneous Notes I called the patient and verbally discussed and reviewed the information about esophageal manometry. All of patient's questions were answered. Patient agreed to be scheduled on 02/12/22 at 8:00 I mailed the patient written information about esophageal manometry and the prep instructions, including holding Flexeril for 48 hours before the test, and directions for the appointment. Patient was informed that she will need to follow up with Dr. Aamir PA-C for test results. Polly Chapin RN documented in this encounter [facility] 01-30-2022 Miscellaneous Notes Can you please contact patient directly to schedule for esophageal manometry? Thank you, Airam Gonzalez documented in this encounter [facility] 01-29-2022 Miscellaneous Notes Esophageal manometry test order placed. Can you please help patient set this up? Thanks! This patient gave consent to this Medical Advice Message and is aware that it may result in a bill to their insurance, as well as the possibility of receiving a bill for a copay and/or deductible. They are an established patient, but are not seeking information exclusively about a problem treated during an in person or video visit in the last seven days. I did not recommend an in person or video visit within seven days of my reply. See the [employer] message reply for my assessment and plan. I spent a total of 5 minutes reviewing the patient's prior medical records and current request for medical advice, prescribing medications or ordering tests (if applicable), replying to the patient, and documenting the encounter. documented in this encounter [facility] 01-25-2022 Consult note Formatting of th is note is different from the original. INITIAL CONSULT GASTROENTEROLOGY SERVICE DATE: 01/25/2022 SERVICE TIME: 7:08 AM Consultation requested by Dr. Dickinson for an opinion regarding egd/colon. My final recommendations will be communicated back to the requesting physician by way of shared medical record or letter via US mail Consulting Service: Gastroenterology Chief Complaint: gastro Opinion/advice regarding: Dysphagia/diarrhea Plan; EGD/Colonoscopy Subjective Win Monroy is a 51 year old female presenting for pre-anesthesia consultation. Pt has history of worsening IBS symptoms with diarrhea and urgency multiple times per day. Also reports increased difficulty swallowing with need to have liquids on hand to swallow. Has problems with pills as well. Above procedure recommended to manage symptoms. Procedure scheduled on 01/25/22 at [facility]. PAST MEDICAL HISTORY Diagnosis Date Asthma Diabetes (HCC) Hypoxia IBS (irritable bowel syndrome) Migraines Psychiatric disorder bipolar depression anxiety OCD Sleep apnea PAST SURGICAL HISTORY Procedure Laterality Date CHOLECYSTECTOMY HX COLONOSCOPY 03/01/2014 normal EGD 05/08/2016 gastritis, unremarkable biopsies EGD - THERAPEUTIC, EUS, OR TUBE INTERVENTIONS 04/05/2009 HYSTERECTOMY HX OVARIAN CYSTECTOMY UNI/BI FAMILY HISTORY Problem Relation Age of Onset Hypertension Mother Heart Mother Diabetes Sister Hyperlipidemia Sister Diabetes Maternal Grandmother Hypertension Maternal Grandmother Heart Maternal Grandmother Stroke Maternal Grandmother Colon Cancer Maternal Grandmother Diabetes Maternal Uncle Hypertension Maternal Uncle Hyperlipidemia Maternal Uncle Heart Maternal Uncle Social History Tobacco Use Smoking status: Never Smokeless tobacco: Never Vaping Use Vaping Use: Never used Substance Use Topics Alcohol use: No Comment: 2-3 times per year Drug use: No MEDICATIONS: Prior to Admission Medications: ondansetron orally disintegrating (ZOFRAN ODT) 8 mg disintegrating tablet Take 1 tablet by mouth every 8 hours as needed for nausea/vomiting. atorvastatin (LIPITOR) 20 mg tablet OZEMPIC 1 mg/dose (4 mg/3 mL) pen insulin glargine,hum.rec.anlog (LANTUS SUBCUTANEOUS) Inject subcutaneously. cyclobenzaprine (FLEXERIL) 5 mg tablet Take by mouth three times daily. ondansetron (ZOFRAN) 4 mg tablet Take by mouth every 8 hours as needed for nausea/vomiting. rizatriptan (MAXALT) 10 mg tablet Take 10 mg by mouth as needed. May repeat in 2 hours if needed hydrOXYzine HCl (ATARAX) 25 mg tablet Take 25 mg by mouth three times daily as needed. cyanocobalamin (VITAMIN B-12) 500 mcg tablet Take by mouth once daily. famotidine (PEPCID) 20 mg tablet Take 20 mg by mouth twice daily. magnesium oxide 400 mg magnesium tab Take by mouth. omega-3 DHA-EPA (FISH OIL) 1,200 (144-216) mg capsule Take 1 capsule by mouth daily with breakfast. riboflavin, vitamin B2, 400 mg tab Take by mouth. FLUoxetine HCl (PROZAC) 40 mg capsule Take 40 mg by mouth once daily. metFORMIN (GLUCOPHAGE) 1,000 mg tablet Take 1,000 mg by mouth. amitriptyline (ELAVIL) 75 mg tablet Take 75 mg by mouth. cholecalciferol (VITAMIN D3) 2,000 unit tablet Take 2,000 Units by mouth once daily. fluticasone-salmeterol HFA (ADVAIR) 230-21 mcg/actuation inhaler Inhale 2 Puffs as instructed twice daily. (Patient not taking: Reported on 01/18/2022) ipratropium-albuterol (DUONEB) 0.5 mg-3 mg(2.5 mg base)/3 mL nebu Inhale 3 mL as instructed four times daily. albuterol HFA (PROVENTIL HFA, VENTOLIN HFA) 90 mcg/actuation inhaler Inhale 2 Puffs as instructed every 6 hours as needed. CPAP No current facility-administered medications for this encounter. ALLERGIES Allergen Reactions Divalproex Sodium Unknown Lamotrigine Unknown Liraglutide Unknown Morphine GI Upset Nubain [Nalbuphine * Intolerance shakes Prednisone Hives Can take steroids and medrol but not the prednisone GI SPECIFIC REVIEW OF SYSTEMS: Negative for nausea, vomitting Negative for decreased appetite Negative for change in weight No alteration in bowel habits OTHER ROS: Negative for fever, night sweats, sleep problems, mood or depression. Objective PHYSICAL EXAM: There were no vitals taken for this visit. GENERAL- AAO x 3, no distress HEENT: Moist mucus membranes, no carotid bruit LUNGS: Clear to auscultation bilaterally CARDIAC: S1, S2 heard, no murmur appreciated ABDOMEN: Soft, non-tender without guarding or rigidity, normal bowel sounds EXTREMITIES: No pedal edema DATA: Diagnostic Tests Reviewed for Today's Visit: Most recent labs and imaging results. Most recent labs Most recent imaging Impression/Recommendations Active Problems: * No active hospital problems. * Resolved Problems: * No resolved hospital problems. * SIGNATURE: Matthias Bautista MD PATIENT NAME: Win Monroy DATE: January 25, 2022 TIME: 7:08 AM documented in this encounter [facility] 01-18-2022 Note HNO ID: [id number] Author: Kae Lambert RN Service: ? Author Type: Registered Nurse Type: Progress Notes Filed: 01/18/2022 1:07 PM Note Text: Opened in error [facility] 01-18-2022 History of Presen t illness Narrative Opened in error documented in this encounter [facility] 01-18-2022 History and physical note HISTORY AND PHYSICAL EXAMINATION SERVICE DATE: 01/18/2022 SERVICE TIME: 12:09 PM PRIMARY CARE PHYSICIAN: Osorio Dickinson MD REASON FOR VISIT: Win Monroy is a 51 year old female who is scheduled for Endoscopy and colonoscopy at the request of Dr. Matthias Bautista for consultation. My final recommendation will be communicated back to the requesting physician by way of shared medical record or letter. Subjective The patient has the following: ACTIVE PROBLEM LIST Diabetes Mellitus Type 2, Controlled, Without Complications (Hcc) Bipolar Disorder in Partial Remission (Hcc) Jesús On Cpap Routine Cervical Smear Symptomatic Menopausal Or Female Climacteric States Dyspareunia in Female Atrophic Vaginitis Migraine Headache Body Mass Index (Bmi) 40.0-44.9, Adult (Hcc) Posttraumatic Stress Disorder Mixed Hyperlipidemia Gastroesophageal Reflux Disease Without Esophagitis Mild Intermittent Asthma Without Complication Recent Uri Other Dysphagia Fatty Liver Low Back Pain COVID-19 Immunization Status Overdue - COVID-19 VACCINE (4 - Booster for Pfizer series) Overdue since 04/27/2021 03/02/2021 Imm Admin: COVID-19 original vaccine, age 12+ yr, monovalent (PFIZER-BIONTECH - PURPLE TOP) 03/22/2020 Imm Admin: COVID-19 original vaccine, age 12+ yr, monovalent (PFIZER-BIONTECH - PURPLE TOP) 03/01/2020 Imm Admin: COVID-19 original vaccine, age 12+ yr, monovalent (PFIZER-BIONTECH - PURPLE TOP) CHIEF COMPLAINT: Pre-anesthesia consultation HPI: Win Monroy is a 51 year old female presenting for pre-anesthesia consultation. Pt has history of worsening IBS symptoms with diarrhea and urgency multiple times per day. Also reports increased difficulty swallowing with need to have liquids on hand to swallow. Has problems with pills as well. Above procedure recommended to manage symptoms. Procedure scheduled on 01/25/22 at [facility]. REVIEW OF SYSTEMS: General: Intentional weight loss over last few years Positive for: fever (fever on 01/08-01/09/22, tested negative for COVID and influenza- completed course of tamiflu). Neurological: Positive for: headaches. Negative for: multiple sclerosis, Parkinson's disease, seizures and strokes. Respiratory: Positive for: asthma (inhalers only prn), dyspnea (some with significant walking, carrying heavy objects or flights of steps), URI < 2 weeks (congestion, cough, resolved with tamilflu), obstructive sleep apnea and CPAP/BiPAP compliant. Negative for: COPD, current cough and bronchodilator used daily for the last 3 months. Cardiovascular: Positive for: hyperlipidemia Negative for: arrhythmia, atrial fibrillation, chest pain, DVT/PE, hypertension and murmur/valvular heart disease. GI: See HPI. Positive for: abdominal pain, dysphagia, GERD, inflammatory bowel disease (work up for IBD vs IBS), liver disease (fatty liver), nausea and vomiting : Positive for: nephrolithiasis. Negative for: frequent urination, urinary incontinence, renal failure and urgency. 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 Patient's diabetes mellitus is controlled by insulin and oral agents. Negative for: hypothyroidism. Hematology: No history of bleeding or clotting disorder. Patient is not taking anti-coagulation or platelet medications. No history of hematological symptoms or problems. Oncology: No history of CA metastasis, chemo within 30 days, or radiotherapy within 90 days. No history of oncological symptoms or problems. Psych: PTSA, treated with meds Musculoskeletal: Positive for: back pain (occasional back pain and uses flexiril, states better with change of employment). Skin: Sore on buttock PAST MEDICAL HISTORY Diagnosis Date Asthma Diabetes (HCC) Hypoxia IBS (irritable bowel syndrome) Migraines Psychiatric disorder bipolar depression anxiety OCD Sleep apnea PAST SURGICAL HISTORY Procedure Laterality Date CHOLECYSTECTOMY HX COLONOSCOPY 03/01/2014 normal EGD 05/08/2016 gastritis, unremarkable biopsies EGD - THERAPEUTIC, EUS, OR TUBE INTERVENTIONS 04/05/2009 HYSTERECTOMY HX OVARIAN CYSTECTOMY UNI/BI FAMILY HISTORY Problem Relation Age of Onset Hypertension Mother Heart Mother Diabetes Sister Hyperlipidemia Sister Diabetes Maternal Grandmother Hypertension Maternal Grandmother Heart Maternal Grandmother Stroke Maternal Grandmother Colon Cancer Maternal Grandmother Diabetes Maternal Uncle Hypertension Maternal Uncle Hyperlipidemia Maternal Uncle Heart Maternal Uncle Social History Tobacco Use Smoking status: Never Smokeless tobacco: Never Vaping Use Vaping Use: Never used Substance Use Topics Alcohol use: No Comment: 2-3 times per year Drug use: No Prior to Admission medications as of 01/18/22 1044 Medication Sig Last Dose Taking ondansetron orally disintegrating (ZOFRAN ODT) 8 mg disintegrating tablet Take 1 tablet by mouth every 8 hours as needed for nausea/vomiting. Taking Yes atorvastatin (LIPITOR) 20 mg tablet Taking Yes OZEMPIC 1 mg/dose (4 mg/3 mL) pen Taking Yes insulin glargine,hum.rec.anlog (LANTUS SUBCUTANEOUS) Inject subcutaneously. Taking Yes cyclobenzaprine (FLEXERIL) 5 mg tablet Take by mouth three times daily. Taking Yes ondansetron (ZOFRAN) 4 mg tablet Take by mouth every 8 hours as needed for nausea/vomiting. Taking Yes rizatriptan (MAXALT) 10 mg tablet Take 10 mg by mouth as needed. May repeat in 2 hours if needed Taking Yes hydrOXYzine HCl (ATARAX) 25 mg tablet Take 25 mg by mouth three times daily as needed. Taking Yes cyanocobalamin (VITAMIN B-12) 500 mcg tablet Take by mouth once daily. Taking Yes famotidine (PEPCID) 20 mg tablet Take 20 mg by mouth twice daily. Taking Yes magnesium oxide 400 mg magnesium tab Take by mouth. Taking Yes omega-3 DHA-EPA (FISH OIL) 1,200 (144-216) mg capsule Take 1 capsule by mouth daily with breakfast. Taking Yes riboflavin, vitamin B2, 400 mg tab Take by mouth. Taking Yes FLUoxetine HCl (PROZAC) 40 mg capsule Take 40 mg by mouth once daily. Taking Yes metFORMIN (GLUCOPHAGE) 1,000 mg tablet Take 1,000 mg by mouth. Taking Yes amitriptyline (ELAVIL) 75 mg tablet Take 75 mg by mouth. Taking Yes cholecalciferol (VITAMIN D3) 2,000 unit tablet Take 2,000 Units by mouth once daily. Taking Yes ipratropium-albuterol (DUONEB) 0.5 mg-3 mg(2.5 mg base)/3 mL nebu Inhale 3 mL as instructed four times daily. Taking Yes albuterol HFA (PROVENTIL HFA, VENTOLIN HFA) 90 mcg/actuation inhaler Inhale 2 Puffs as instructed every 6 hours as needed. Taking Yes CPAP Taking Yes fluticasone-salmeterol HFA (ADVAIR) 230-21 mcg/actuation inhaler Inhale 2 Puffs as instructed twice daily. Patient not taking: Reported on 01/18/2022 Not Taking No medication comments found. ALLERGIES Allergen Reactions Divalproex Sodium Unknown Lamotrigine Unknown Liraglutide Unknown Morphine GI Upset Nubain [Nalbuphine * Intolerance shakes Prednisone Hives Can take steroids and medrol but not the prednisone Objective PHYSICAL EXAM: General: alert and oriented, healthy appearance and obese. Pertinent negatives noted - not distressed. Skin: normal color, no rash or lesions. HEENT: EOM intact, pupils equal round and pupils reactive to light. Pertinent negatives noted - no carotid bruit. Cardiovascular: regular rate and rhythm, normal S1 and S2, no rub, murmurs, or gallop. Respiratory: normal breath sounds, no wheezes or crackles. No chest wall deformity or tenderness. Abdomen: soft. Extremities: no deformity, no edema or tenderness, no joint swelling or clubbing. Neurological: normal cognition and motor skills. Gait normal. No weakness or sensory deficit. PAIN ASSESSMENT: VITALS: BP 124/64 Pulse 85 Temp (Src) 97.8 (Temporal) Resp 16 Ht 5' 4.5 (1.64m) Wt 261 lb (118.4kg) SpO2 96% BMI 44.12 kg/(m^2). Diagnostic tests reviewed for today's visit: None Assessment Migraine headache Assessment: Well controlled with RX, states she hasn't had one in a few months JESÚS on CPAP Assessment: On CPAP, uses nightly Posttraumatic stress disorder Assessment: stable on RX Body mass index (BMI) 40.0-44.9, adult ([facility]) Assessment: Body mass index is 44.11 kg/m . some dyspnea with exersion Mixed hyperlipidemia Assessment: stable on RX Diabetes mellitus type 2, controlled, without complications ([facility]) Assessment: States she doesn't do blood sugar checks, last HA1C 07/19/21 = 7.5%, on oxempic, lantus and metformin Gastroesophageal reflux disease without esophagitis Assessment: see HPI, takes daily famotidine Mild intermittent asthma without complication Assessment: Uses albuterol and advair prn, usually with seasonal changes and illness Recent URI Assessment: Patient with recent URI, dx 01/09/22, negative for COVID and influenza, but RX with course of Tamiflu, all symptoms now resolved Other dysphagia Assessment: procedure plan 01/25/22, patient reports difficulty with some solids and pills Fatty liver Assessment: per CT 2016, noted to have steatosis, LFTs WNL 08/01 Low back pain Assessment: occasional, takes flexeril prn, has improved with change of employment [place] Activity Status Index: METS: Climb a flight of stairs or walk up a hill (5.50 METs) DASI Score: 5.5 Patient denies any chest pain or undue shortness of breath with the above physical activity. Clinical Frailty Scale: 4. Apparently vulnerable STOP-Bang Score: STOP-Bang Score: (+JESÚS, nightly CPAP) ASA Class: 3 ANESTHESIA FINDINGS: Intubation History: No history of difficult intubation. No abnormal airway history Significant Anesthesia Considerations: gets shakes none Airway History: No history of difficult airway No abnormal airway history I - PHYSICAL EVALUATION AIRWAY Patient intubated: No. Tracheostomy tube not present Mallampati: IV. TM distance: <3 FB. Neck ROM: full ROM without neurological symptoms. Mouth opening: adequate. Short neck: yes. Thick neck: yes Brandt present: no DENTAL Dental findings: teeth intact. Additional comments: Has had teeth extracted, none broken. II - ANESTHESIA PLAN ASA Score: 3 Anesthetic Plan: MAC Beta Idris Monitoring Plan Post Procedure Analgesic Plan Prepared for Surgery: optimally prepared for surgery, pending day of surgery. Glucose CONSULTS: Patient does not require consults for optimization at this time Planned Anesthetic: MAC The Following Tests/Procedures Have Been Initiated: No orders of the defined types were placed in this encounter. Instructions Given to Patient: Instructions located in the after visit summary. Patient given verbal and written preop instructions and voices comprehension and compliance. SIGNATURE: Vikas Cameron PA-C PATIENT NAME: Win Monroy DATE: January 18, 2022 TIME: 11:38 AM PAGER/CONTACT #: documented in this encounter [facility] 01-18-2022 Instructions Vikas Cameron PA-C - 01/18/2022 8:52 AM EST PATIENT PREOPERATIVE INSTRUCTIONS Matthias Bautista MD has scheduled you for your procedure at this surgery center: [facility]: [phone] -- [address] [place] [address]. Please read below carefully for your personalized instructions. Dietary Restrictions: Follow diet instructions from surgeon's office, which may include liquid diet prior to your procedure/surgery. Medications: Unless instructed differently below, stay on all of your medications until your surgery. Approved medications to take the morning of surgery with a sip of water: fluoxetine, famotidine - Accucheck day of surgery. - Take full dose of insulin the day before surgery. - Take half dose of long acting insulin (Lantus, NPH) the day of surgery. - Hold metformin the day of surgery, hold taking Ozempic until after procedure If you start any new medications after today's visit, please contact the surgeon's office. Blood Thinning Medications: - Stop NSAIDS (Ibuprofen, Advil, Aleve, Motrin, Celebrex, Mobic, etc.) 7 days before surgery, as directed by your surgeon. - Stop Aspirin 7 days before surgery, as directed by your surgeon. - Stop Vitamin E, ALL multi-vitamins, herbals and dietary supplements 7 days before surgery. - You may take Tylenol (Acetaminophen) or any of your pain medications that do not contain aspirin or NSAIDS as needed. Important Reminders: - If you use CPAP/BIPAP, bring the machine with you to the surgery center. - If you are prescribed inhalers for breathing, continue using them. - Candy, mints, and tobacco products are NOT permitted the morning of surgery. - Hearing aids, dentures and glasses may be worn the morning of surgery. - NO jewelry, body piercings, makeup, hairpins or contacts are to be worn the day of surgery. If you develop symptoms such as a fever, cold, or flu, or have other changes to your health within TWO DAYS of scheduled surgery or the morning of surgery, please contact the surgery center above. Personal Belongings: -Please have photo ID and insurance cards. -If you do not have a copy of advance directives on file with us, please bring a copy with you on the day of surgery. - Leave ALL valuables and money at home or with family members. For Outpatient Procedures: - YOU MUST HAVE A RESPONSIBLE MANAGER VAN TAKE YOU HOME. A INSTRUMENT AND CONTROLS TECHNICIAN OR SPINDLE MAKER CANNOT BE MADE A RESPONSIBLE MANAGER VAN. - We recommend that a responsible person stays with you overnight to take care of you. - You cannot stay in a hotel alone after outpatient surgery. You will not be permitted to have your surgery, if you do not have someone to take care of you. Arrival Time for Surgery: - The Surgery Center or hospital where you are having surgery will call the afternoon before surgery (or Friday for Friday surgery) with a scheduled arrival time. - If you have not heard by 4 pm, please contact the surgery center above. Please be aware that emergency situations arise, which may delay or change your surgical time. If this happens, we will notify you as soon as possible and regret any inconvenience. If you already have an Advance Directive, please fax a copy to [phone] or email to for it to be added to your chart. If you do not have an Advance Directive, you can find the appropriate form and more information at [email or web address]. We recommend that you complete the Advance Directive form found on the website and bring it with you the day of your surgery. It can be witnessed and scanned into your chart that day. Vikas Cameron PA-C documented in this encounter [facility] 01-09-2022 Note HNO ID: [id number] Author: Charissa Rodriguez PA-C Service: ? Author Type: Physician Obstetrics Technician Type: Progress Notes Filed: 01/09/2022 4:14 PM Note Text: Surgical mask, face shield, N95, and gloves worn for all in-person care. 01/09/2022 Patient presents with: Viral Syndrome: SXS since yesterday, exposed to type A influenza, fever, chills, last night fever was 101, also body aches and nausea. SUBJECTIVE: This is a 51 year old that is here today for concern for influenza. She was exposed to Flu A- multiple friends a Thanksgiving have it. She now has cough, fever, body aches, sweats, and runny nose x 1 day (01/08/22). Patient denies wheezing, shortness of breath, increased WOB, or chest pain. COVID exposure: none Influenza exposure: yes RSV exposure: none Covid Immunization Dates Overdue - COVID-19 VACCINE (4 - Booster for Pfizer series) Overdue since 04/27/2021 03/02/2021 Imm Admin: COVID-19 original vaccine, age 12+ yr, monovalent (PFIZER-BIONTECH - PURPLE TOP) 03/22/2020 Imm Admin: COVID-19 original vaccine, age 12+ yr, monovalent (PFIZER-BIONTECH - PURPLE TOP) 03/01/2020 Imm Admin: COVID-19 original vaccine, age 12+ yr, monovalent (PFIZER-BIONTECH - PURPLE TOP) Asthma: none Pneumonia: none Tobacco: none Pain on scale of 0-10 with 0 being no pain and 10 being greatest pain: 0 Nothing makes the symptoms better. Nothing makes them worse. Self-treatment:. motrin The severity is mild and the symptoms are not improving. The patient did not have a similar problem in the last 3 months. The patient did not take any antibiotics in the last 3 months. Barriers to learning: none. Reviewed meds, OTCs, herbals or supplements. Reviewed allergies, medications, social history, and past medical history. PAST MEDICAL HISTORY Diagnosis Date Asthma Diabetes (HCC) Hypoxia IBS (irritable bowel syndrome) Migraines Psychiatric disorder bipolar depression anxiety OCD Sleep apnea ALLERGIES Divalproex Sodium, Lamotrigine, Liraglutide, Morphine, Nubain [Nalbuphine Hcl], and Prednisone MEDICATIONS Current Outpatient Medications Medication Sig atorvastatin (LIPITOR) 20 mg tablet OZEMPIC 1 mg/dose (4 mg/3 mL) pen insulin glargine,hum.rec.anlog (LANTUS SUBCUTANEOUS) Inject subcutaneously. cyclobenzaprine (FLEXERIL) 5 mg tablet Take by mouth three times daily. ondansetron (ZOFRAN) 4 mg tablet Take by mouth every 8 hours as needed for nausea/vomiting. rizatriptan (MAXALT) 10 mg tablet Take 10 mg by mouth as needed. May repeat in 2 hours if needed hydrOXYzine HCl (ATARAX) 25 mg tablet Take 25 mg by mouth three times daily as needed. cyanocobalamin (VITAMIN B-12) 500 mcg tablet Take by mouth once daily. famotidine (PEPCID) 20 mg tablet Take 20 mg by mouth twice daily. magnesium oxide 400 mg magnesium tab Take by mouth. omega-3 DHA-EPA (FISH OIL) 1,200 (144-216) mg capsule Take 1 capsule by mouth daily with breakfast. riboflavin, vitamin B2, 400 mg tab Take by mouth. FLUoxetine HCl (PROZAC) 40 mg capsule Take 40 mg by mouth once daily. metFORMIN (GLUCOPHAGE) 1,000 mg tablet Take 1,000 mg by mouth. amitriptyline (ELAVIL) 75 mg tablet Take 75 mg by mouth. cholecalciferol (VITAMIN D3) 2,000 unit tablet Take 2,000 Units by mouth once daily. fluticasone-salmeterol HFA (ADVAIR) 230-21 mcg/actuation inhaler Inhale 2 Puffs as instructed twice daily. albuterol HFA (PROVENTIL HFA, VENTOLIN HFA) 90 mcg/actuation inhaler Inhale 2 Puffs as instructed every 6 hours as needed. CPAP oseltamivir (TAMIFLU) 75 mg capsule Take 1 capsule by mouth twice daily for 5 days. ondansetron orally disintegrating (ZOFRAN ODT) 8 mg disintegrating tablet Take 1 tablet by mouth every 8 hours as needed for nausea/vomiting. (Patient not taking: Reported on 01/09/2022) ipratropium-albuterol (DUONEB) 0.5 mg-3 mg(2.5 mg base)/3 mL nebu Inhale 3 mL as instructed four times daily. No current facility-administered medications for this visit. Medications and allergies reviewed by this provider. SOCIAL HISTORY Social History Tobacco Use Smoking status: Never Smokeless tobacco: Never Vaping Use Vaping Use: Never used Substance Use Topics Alcohol use: No Drug use: No REVIEW OF SYSTEMS Review of Systems ROS: constitutional: fever, body aches, fatigue, HENT-sinus symptoms, Eyes- neg, heart-neg, respiratory-Cough, GI-neg, -neg, skin-neg, Allergy- neg, lymph-neg, neuro-neg, psych-neg- All systems neg except as noted above in HPI. OBJECTIVE: BP 123/66 Pulse 107 Temp 36.8 ?C (98.2 ?F) Resp 16 Wt 118.4 kg (261 lb) SpO2 96% BMI 44.80 kg/m? . Vital signs reviewed by this provider. Physical Exam Vitals reviewed. Constitutional: General: She is not in acute distress. Appearance: Normal appearance. She is well-developed and normal weight. She is not ill-appearing, toxic-appearing or diaphoretic. HENT: Head: Normocephalic and atraumatic. No right perio (more content not included)... [facility] 01-09-2022 Influenza virus A and B RNA and SARS-CoV-2 (COVID-19) N gene panel CAIN+probe (Resp) COVID 19 RESULT: SARS-CoV-2 (Agent of COVID-19) Not Detected by RT-PCR or equivalent method. [email or web address] (RYAN)_EUA This test was developed and its performance characteristics determined by [facility]'s [facility] [place]. This test has been authorized by FDA under an Emergency Use Authorization (EUA). This test has been validated in accordance with the FDA's Guidance Document Policy for Diagnostics Testing in Laboratories Certified to Perform High Complexity Testing under CLIA prior to Emergency use Authorization for Coronavirus Disease 2019 during the Public Health Emergency issued on April 10, 2019. Test performed by [facility], [facility] [place], [address] [place] [address]. INFLUENZA A PCR: Negative for Influenza A by RT-PCR INFLUENZA B PCR: Negative for Influenza B by RT-PCR [facility] documented as of this encounter (statuses as of 11/09/2021) [facility]04-13-2016 History of Past illness Narrative* Problem Noted Date Resolved Date PCOD (polycystic ovarian disease) 05/24/2015 05/24/2015 Hirsutism 05/24/2015 05/24/2015 documented as of this encounter (statuses as of 12/12/2021) [facility]04-[facility]2016 History of Past illness Narrative* Problem Noted Date Resolved Date PCOD (polycystic ovarian disease) 05/24/2015 05/24/2015 Hirsutism 05/24/2015 05/24/2015 documented as of this encounter (statuses as of 01/09/2022) [facility] History of Past illness Narrative* Problem Noted Date Resolved Date PCOD (polycystic ovarian disease) 05/24/2015 05/24/2015 Hirsutism 05/24/2015 05/24/2015 Asthma exacerbation 02/11/2015 01/18/2022 Pneumonia of right middle lobe due to infectious organism 02/11/2015 01/18/2022 Pneumonia of left lower lobe due to infectious o rganism 02/11/2015 01/18/2022 documented as of this encounter (statuses as of 01/18/2022) [facility]04[facility]2016 History of Past illness Narrative* Problem Noted Date Resolved Date PCOD (polycystic ovarian disease) 05/24/2015 05/24/2015 Hirsutism 05/24/2015 05/24/2015 Asthma exacerbation 02/11/2015 01/18/2022 Pneumonia of right middle lobe due to infectious organism 02/11/2015 01/18/2022 Pneumonia of left lower lobe due to infectious o rganism 02/11/2015 01/18/2022 documented as of this encounter (statuses as of 01/26/2022) [facility]04-[facility] History of Past illness Narrative* Problem Noted Date Resolved Date PCOD (polycystic ovarian disease) 05/24/2015 05/24/2015 Hirsutism 05/24/2015 05/24/2015 Asthma exacerbation 02/11/2015 01/18/2022 Pneumonia of right middle lobe due to infectious organism 02/11/2015 01/18/2022 Pneumonia of left lower lobe due to infectious o rganism 02/11/2015 01/18/2022 documented as of this encounter (statuses as of 01/29/2022) [facility] History of Past illness Narrative* Problem Noted Date Resolved Date PCOD (polycystic ovarian disease) 05/24/2015 05/24/2015 Hirsutism 05/24/2015 05/24/2015 Asthma exacerbation 02/11/2015 01/18/2022 Pneumonia of right middle lobe due to infectious organism 02/11/2015 01/18/2022 Pneumonia of left lower lobe due to infectious o rganism 02/11/2015 01/18/2022 documented as of this encounter (statuses as of 01/30/2022) [facility] History of Past illness Narrative* Problem Noted Date Resolved Date PCOD (polycystic ovarian disease) 05/24/2015 05/24/2015 Hirsutism 05/24/2015 05/24/2015 Asthma exacerbation 02/11/2015 01/18/2022 Pneumonia of right middle lobe due to infectious organism 02/11/2015 01/18/2022 Pneumonia of left lower lobe due to infectious o rganism 02/11/2015 01/18/2022 documented as of this encounter (statuses as of 02/01/2022) [facility] History of Past illness Narrative* Problem Noted Date Resolved Date PCOD (polycystic ovarian disease) 05/24/2015 05/24/2015 Hirsutism 05/24/2015 05/24/2015 Asthma exacerbation 02/11/2015 01/18/2022 Pneumonia of right middle lobe due to infectious organism 02/11/2015 01/18/2022 Pneumonia of left lower lobe due to infectious o rganism 02/11/2015 01/18/2022 documented as of this encounter (statuses as of 02/01/2022) [facility] History of Past illness Narrative* Problem Noted Date Resolved Date PCOD (polycystic ovarian disease) 05/24/2015 05/24/2015 Hirsutism 05/24/2015 05/24/2015 Asthma exacerbation 02/11/2015 01/18/2022 Pneumonia of right middle lobe due to infectious organism 02/11/2015 01/18/2022 Pneumonia of left lower lobe due to infectious o rganism 02/11/2015 01/18/2022 documented as of this encounter (statuses as of 02/14/2022) [facility] Diagnosis Nausea and vomiting, intractability of vomiting not specified, unspecified vomiting type- Primary Dehydration Nonintractable headache, unspecified chronicity pattern, unspecified headache type documented in this encounter [facility] Work Phone: Evaluation note* Diagnosis Irritable bowel syndrome with diarrhea- Primary Irritable bowel syndrome Dysphagia, unspecified type [facility] Diagnosis Nausea- Primary Nausea alone documented in this encounter [facility] note* Diagnosis Flu-like symptoms- Primary Other general symptoms Exposure to influenza Contact with or exposure to other viral diseases documented in this encounter [facility] note* Diagnosis Pre-op evaluation- Primary Preoperative examination, unspecified Other migraine without status migrainosus, intractable JESÚS on CPAP Obstructive sleep apnea (adult) (pediatric) Posttraumatic stress disorder Body mass index (BMI) 40.0-44.9, adult (HCC) Mixed hyperlipidemia Controlled type 2 diabetes mellitus without complication, with long-term current use of insulin (HCC) Gastroesophageal reflux disease without esophagitis Esophageal reflux Mild intermittent asthma without complication Unspecified asthma Recent URI Other dysphagia Fatty liver Other chronic nonalcoholic liver disease Low back pain without sciatica, unspecified back pain laterality, unspecified chronicity documented in this encounter [facility] note* Diagnosis Dysphagia, unspecified type Irritable bowel syndrome with diarrhea Irritable bowel syndrome documented in this encounter [facility] note* Diagnosis Dysphagia, unspecified type- Primary documented in this encounter [facility] note* Diagnosis Dysphagia, unspecified type- Primary Dysphagia, unspecified type documented in this encounter [facility] Discharge instructions* Attachments The following attachments cannot be sent through Care Everywhere. * Dehydration (Peruvian) * Headache (Peruvian) * Nausea and Vomiting (Peruvian) [facility] Reason for referral (narrative)* Outpatient Procedure (Routine) - Authorized Specialty Diagnoses / Procedures Referred By Shayla bhagat Referred To Contact [facility] Diagnoses Irritable bowel syndrome with diarrhea Procedures COLONOSCOPY DIAGNOSTIC COLONOSCOPY FLX DX W/COLLJ SPEC WHEN PFRMD Savannah Rutledge PA-C [address] [place] [address] [facility] [place] [address] [place] [id number] Referral ID Status Reason Start Date Expiration Date Visits Requested Visits Authorized [id number] Authorized Auto-Generat ed Referral 11/09/2021 11/09/2022 1 1 * Outpatient Procedure (Routine) - Authorized Specialty Diagnoses / Procedures Referred By Shayla bhagat Referred To Contact [facility] Diagnoses Dysphagia, unspecified type Procedures EGD DIAGNOSTIC ESOPHAGOGASTRODUODENOSC OPY TRANSORAL DIAGNOSTIC Savannah Rutledge PA-C [address] [place] [address] [address] Referral ID Status Reason Start Date Expiration Date Visits Requested Visits Authorized [id number] Authorized Auto-Generat ed Referral 11/09/2021 11/09/2022 1 1 [facility] for referral (narrative)* Outpatient Procedure (Routine) - Closed Specialty Diagnoses / Procedures Referred By Shayla bhagat Referred To Contact [facility] Diagnoses Irritable bowel syndrome with diarrhea Procedures COLONOSCOPY DIAGNOSTIC COLONOSCOPY FLX DX W/COLLJ SPEC WHEN PFRMD Savannah Rutledge PA-C [address] [place] [address] [address] Referral ID Status Reason Start Date Expiration Date V isits Requested Visits Authorized [id number] Closed Auto-Generate d Referral 11/09/2021 11/09/2022 1 1 * Outpatient Procedure (Routine) - Closed Specialty Diagnoses / Procedures Referred By Shayla bhagat Referred To Contact [facility] Diagnoses Dysphagia, unspecified type Procedures EGD DIAGNOSTIC ESOPHAGOGASTRODUODENOSC OPY TRANSORAL DIAGNOSTIC Savannah Rutledge PA-C [address] [place] [address] [address] Referral ID Status Reason Start Date Expiration Date V isits Requested Visits Authorized [id number] Closed Auto-Generate d Referral 11/09/2021 11/09/2022 1 1 [facility] for referral (narrative)* Outpatient Procedure (Routine) - Pending Review Specialty Diagnoses / Procedures Referred By Shayla bhagat Referred To Contact [facility] Diagnoses Dysphagia, unspecified type Procedures MANOMETRY ESOPHAGEAL ESOPHAGEAL MOTILITY STUDY W/INTERP&RPT Savannah Rutledge PA-C [address] [place] [address] [address] Referral ID Status Reason Start Date Expiration Date Visits Requested Visits Authorized [id number] Pending Review Auto-Generat ed Referral 2 01/29/2023 1 1 [facility] for visit Narrative* Outpatient Procedure (Routine) - Closed Specialty Diagnoses / Procedures Referred By Shayla bhagat Referred To Contact [facility] Diagnoses Irritable bowel syndrome with diarrhea Procedures COLONOSCOPY DIAGNOSTIC COLONOSCOPY FLX DX W/COLLJ SPEC WHEN PFRMD Savannah Rutledge PA-C [address] [place] [address] [address] Referral ID Status Reason Start Date Expiration Date V isits Requested Visits Authorized [id number] Closed Auto-Generate d Referral 11/09/2021 11/09/2022 [address] 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 ACP-Advance Directive ACP-Power of Health And Wellness Manager Summary Purpose Family History No Family History Records FoundNo Family History Records FoundNo Family History Records FoundNo Family History Records FoundNo Family History Records FoundNo Family History Records FoundNo Family History Records FoundNo Family History Records Found Additional Source Comments INFORMATION SOURCE (unrecogn ized section and content) DATE CREATED AUTHOR AUTHOR'S ORGANIZ ATION 11/14/2019 [facility] DATE CREATED AUTHOR AUTHOR'S ORGANIZ ATION 01/30/2021 [facility] DATE CREATED AUTHOR AUTHOR'S ORGANIZ ATION 09/05/2021 [facility] DATE CREATED AUTHOR AUTHOR'S ORGANIZ ATION 01/19/2022 [facility] DATE CREATED AUTHOR AUTHOR'S ORGANIZ ATION 01/31/2022 [facility] DATE CREATED AUTHOR AUTHOR'S ORGANIZ ATION 02/02/[address] [facility] DATE CREATED AUTHOR AUTHOR'S ORGANIZ ATION 02/03/2022 [facility] Reason for Visit (unrecogniz ed section and content) Reason Comments Constipation Feels like medicatio ns and food gets stuck when she swallows. Reason Comments Patient Update Reason Comments Viral Syndrome SXS since yesterday, exposed to type A influenza, fever, chills, last night fever was 101, also body aches and nausea. Reason Comments Anesthesia Consult Reason Comments Manometry Reason Comments Future Appointment Esophageal manometry scheduled 02/12/22 at 8 AM Reason Comments [facility]ointment [facility] Scheduled Active and Recently Administ ered Medications (unrecognized section and content) Care Teams (unrecognized sec tion and content) Swine Extension Field Specialist Relationship Specialty Start Date End Date Osorio Dickinson MD [address] [place] [id number] PCP - General 10/11/14 Sw[employer] Field Specialist Relationship Specialty Start Date End Date Osorio Dickinson MD [address] [place] [id number] PCP - General Unspecified 02/11/15 Swine Extension Field Specialist Relationship Specialty Start Date End Date Osorio Dickinson MD [address] [place] [phone] PCP - General Unspecified 02/11/15 Swine Extension Field Specialist Relationship Specialty Start Date End Date Osorio Dickinson MD [address] [place] [address] [place], [place] [phone] PCP - General Unspecified 02/11/15 Swine Extension Field Specialist Relationship Specialty Start Date End Date Osorio Dickinson MD [facility] [place] [address] PCP - General Unspecified 02/11/15 Swine Extension Field Specialist Relationship Specialty Start Date End Date Osorio Dickinson MD [address] [place] [address] PCP - General Unspecified 02/11/15 Swine Extension Field Specialist Relationship Specialty Start Date End Date Osorio Dickinson MD [address] [place] [address] PCP - General Unspecified 02/11/15 Swine Extension Field Specialist Relationship Specialty Start Date End Date Osorio Dickinson MD [address] [place] [address] PCP - General Unspecified 02/11/15 Source Comments (unrecognize d section and content) In the event this informatio n is protected by the Federal Confidentiality of Alcohol and Drug Abuse Patient Records regulations: The Federal rules restrict any use of the information to criminally investigate or prosecute any alcohol or drug abuse patient.[facility] the event this information is protected by the Federal Confidentiality of Alcohol and Drug Abuse Patient Records regulations: The Federal rules restrict any use of the information to criminally investigate or prosecute any alcohol or drug abuse patient.[facility] the event this information is protected by the Federal Confidentiality of Alcohol and Drug Abuse Patient Records regulations: The Federal rules restrict any use of the information to criminally investigate or prosecute any alcohol or drug abuse patient.[facility] the event this information is protected by the Federal Confidentiality of Alcohol and Drug Abuse Patient Records regulations: The Federal rules restrict any use of the information to criminally investigate or prosecute any alcohol or drug abuse patient.[facility] the event this information is protected by the Federal Confidentiality of Alcohol and Drug Abuse Patient Records regulations: The Federal rules restrict any use of the information to criminally investigate or prosecute any alcohol or drug abuse patient.[facility] the event this information is protected by the Federal Confidentiality of Alcohol and Drug Abuse Patient Records regulations: The Federal rules restrict any use of the information to criminally investigate or prosecute any alcohol or drug abuse patient.[facility] the event this information is protected by the Federal Confidentiality of Alcohol and Drug Abuse Patient Records regulations: The Federal rules restrict any use of the information to criminally investigate or prosecute any alcohol or drug abuse patient.[facility] the event this information is protected by the Federal Confidentiality of Alcohol and Drug Abuse Patient Records regulations: The Federal rules restrict any use of the information to criminally investigate or prosecute any alcohol or drug abuse patient.[facility] the event this information is protected by the Federal Confidentiality of Alcohol and Drug Abuse Patient Records regulations: The Federal rules restrict any use of the information to criminally investigate or prosecute any alcohol or drug abuse patient.[facility] the event this information is protected by the Federal Confidentiality of Alcohol and Drug Abuse Patient Records regulations: The Federal rules restrict any use of the information to criminally investigate or prosecute any alcohol or drug abuse patient.[facility] FOR RECORDS PERTAINING TO PATIENTS WHO ARE OR HAVE BEEN ENROLLED IN A CHEMICAL DEPENDENCY/SUBSTANCEABUSE PROGRAM, SOME INFORMATION MAY BE OMITTED. This clinical summary was aggregated from multiple sources. Caution should be exercised in using it in the provision of clinical care. This summary normalizes information from multiple sources, and as a consequence, information in this document may materially change the coding, format and clinical context of patient data. In addition, data may be omitted in some cases. CLINICAL DECISIONS SHOULD BE BASED ON THE PRIMARY CLINICAL RECORDS. [facility]. provides no warranty or guarantee of the accuracy or completeness of information in this document.
[2023-03-25] MEDS: Lactated Ringers 1,000 ML 15 ML IV ×2 (06:28→10:39)
[2023-03-25 06:49] LABS: Bedside Glucose 221 mg/dL (74-106)
--- NOTE | 2023-03-25 07:30 | LIP_PTH ---
PATHOLOGY RESULTS PATIENT: CATIE WEAVER LOC: [facility] U#:[id number] AGE/SX: 53/F ROOM: RE03/25/[address]: Dr. Jc Dumont MD : 1970 BED: DIS: 03/25/2023 SPEC #: [id number] RECD: 03/25/23 10:49 STATUS: SHERYL RECarine #: [id number] SARAH: 03/25/23 07:[address]: Jc Dumont DEPT: SURGICAL PATHOLOGY RECD BY: Marcelina Rahman ENTERED: 03/25/23 11:23 SP TYPE: LIPOMA OTHR DR: Dr. Stacey Talbert MD Tissues: Soft tissues, NOS Procedures: Surgery Specimen Level III HEADER OPERATION: Excision lipoma on upper back PRE-OP DIAGNOSIS: Lipoma of back TISSUE SUBMITTED: Left upper back lipoma (short stitch - superior, long stitch - lateral) MICROSCOPIC DIAGNOSIS Left upper back lipoma, excision: Mature adipose tissue, consistent with lipoma. MAGGIE:sandeep 03/26/2023 MICROSCOPIC DESCRIPTION Slides are reviewed. GROSS DESCRIPTION Received in fixative is one container labeled with the patient name and designated left upper back lipoma. The specimen consists of an ovoid piece of pink-yellow soft tissue measuring 11.0 x 7.0 x 2.0 cm. The specimen is oriented as follows: short stitch - superior, long stitch - lateral. The specimen is inked as follows: anterior - yellow, posterior - black, superior - blue, inferior - green, medial - red and lateral - orange. Sections reveal yellow adipose cut surfaces without area of hemorrhage, necrosis or cystic degeneration. Also present in the container are detached pieces of yellow adipose tissue measuring in aggregate 5.0 x 4.0 x 1.5 cm. Sections reveal yellow adipose cut surfaces without area of hemorrhage, necrosis or cystic degeneration. Configuration Technician sections are submitted in four cassettes. / MAGGIE:sandeep 03/25/2023 TC:1 CPT: 44551
--- NOTE | 2023-03-25 07:41 | PCM.HP.BLA ---
History and Physical Date of Admission: 03/25/23 Date of Service: 02/21/23 MR#: [id number] Acct: [id number] Name: CATIE WEAVER Rep #: [id number] : 1970 Provider: Dr. Jc Dumont MD Age/Sex: 53/F Location: [facility] Status: Signed Intake Vital Signs 12/04/2307:09 12/30/2305:56 02/21/2413:21 Height 5 ft 4 in 5 ft 4 in 5 ft 4 in Weight: 261 lb BMI 44.8 BP 101/65 111/71 Blood Pressure Location Rt brachial Rt brachial Position Sitting Sitting Respiration 17 Pulse 84 76 Pulse Source Monitor Monitor Temp 96.8 F L Temp Source Temporal Pulse Oximetry (%) 99 Oxygen Delivery Method room air Intake Visit Reasons: LIPOMA ON SHOULDER Chief Complaint: lipoma on shoulder/back Is patient in pain?: No Allergies morphine Allergy (Severe, Verified 02/21/23 14:22) Vomitingnalbuphine [From Nubain] Allergy (Severe, Verified 02/21/23 14:22) Otherprednisone Allergy (Severe, Verified 02/21/23 14:22) Hives Medications Lactobacillus rhamnosus GG 20 billion cell capsule (Probiotic Digestive Care) cell PO 04/22/22 [History Confirmed 02/21/23] albuterol sulfate 90 mcg/actuation aerosol inhaler (Proventil HFA) 2 puff inhalation Q6H PRN 04/22/22 [History Confirmed 02/21/23] cholecalciferol (vitamin D3) 250 mcg (10,000 unit) capsule 250 mcg PO DAILY 04/22/22 [History Confirmed 02/21/23] hydroxyzine pamoate 25 mg capsule 25 mg PO .QID PRN 04/22/22 [History Confirmed 02/21/23] insulin detemir U-100 100 unit/mL subcutaneous solution (Levemir U-100 Insulin) 10 unit subcut QHS 04/22/22 [History Confirmed 02/21/23] ipratropium 0.5 mg-albuterol 3 mg (2.5 mg base)/3 mL nebulization soln 3 ml inhalation Q4H PRN 04/22/22 [History Confirmed 02/21/23] omega 8-lwr-dtf-fish oil 900 mg-1,400 mg capsule,delayed release (Fish Oil) 1,000 cap PO 04/22/22 [History Confirmed 02/21/23] ondansetron HCl 8 mg tablet 8 mg PO TID PRN 04/22/22 [History Confirmed 02/21/23] riboflavin (vitamin B2) 400 mg tablet 400 mg PO DAILY 04/22/22 [History Confirmed 02/21/23] wheat dextrin 3 gram/4 gram oral powder (Benefiber Sugar Free (dextrin)) 1 packet PO DAILY 04/22/22 [History Confirmed 02/21/23] cyclobenzaprine 5 mg tablet 5 mg PO TID PRN muscle spasm #30 tabs 04/30/22 [Rx Confirmed 02/21/23] atorvastatin 20 mg tablet 20 mg PO QHS #90 tabs 05/06/22 [Rx Confirmed 02/21/23] nystatin 100,000 unit/gram topical powder 1 applic topical TID PRN rash #15 grams 08/27/22 [Rx Confirmed 02/21/23] benzonatate 100 mg capsule 100 mg PO TID 5 days #15 caps 10/26/22 [Rx Confirmed 02/21/23] guaifenesin 600 mg tablet, extended release 12 hr (Mucinex) 600 mg PO Q12H #30 tabs 12/03/22 [Rx Confirmed 02/21/23] rizatriptan 10 mg tablet 10 mg PO ONCE PRN 12/03/22 [History Confirmed 02/21/23] fluoxetine 40 mg capsule 40 mg PO QAM #90 caps 12/23/22 [Rx Confirmed 02/21/23] cariprazine 1.5 mg capsule 1.5 mg PO DAILY 30 days #30 caps 12/30/22 [Rx Confirmed 02/21/23] topiramate 50 mg tablet See Rx Instructions .Route .COMPLEX #90 tabs 12/30/22 [Rx Confirmed 02/21/23] trazodone 50 mg tablet See Rx Instructions .Route .COMPLEX #90 tabs 01/21/23 [Rx Confirmed 02/21/23] lisinopril 5 mg tablet See Rx Instructions .Route .COMPLEX #90 tabs 01/24/23 [Rx Confirmed 02/21/23] tirzepatide 10 mg/0.5 mL subcutaneous pen injector 10 mg (0.5 mL) subcut QWEEK #2 mL 12/19/23 [Rx Confirmed 02/21/23] PFSH Medical History Agoraphobia Anxiety Asthma Binge eating disorder Depression DMII (diabetes mellitus, type 2) Ectopic GERD (gastroesophageal reflux disease) High triglycerides History of back problems History of pneumonia Hypercholesterolemia IBS (irritable bowel syndrome) Insomnia Kidney stones Major depressive disorder Migraines Non-alcoholic fatty liver disease Obesity JESÚS (obstructive sleep apnea) Osteoarthritis of lumbar spine Pityriasis versicolor Post-menopausal PTSD (post-traumatic stress disorder) Renal cyst, acquired, right Seasonal allergies Vitamin B deficiency Vitamin D deficiency Surgical History History of esophagogastroduodenoscopy History of partial hysterectomy History of total hysterectomy Hx of cholecystectomy Family History Mother Anxiety Asthma Arthritis Bowel disease Breast cancer Depression Myocardial infarction Heart disease Hypertension Mental disorderSister Anxiety Asthma Depression Seizure disorderGrandmother Arthritis Diabetes Colon cancerBrother Asthma History of blood clots Mental disorder tbiSon Precancerous skin lesion Social History household members: spouse current occupational status: employed current occupation: [employer] Smoking Status: Never smoker Electronic Cigarette Use: not used alcohol intake: current alcohol intake frequency: holidays/special occasions only substance use type: does not use what type of physical activity do you participate in: none do you feel safe at home: Yes HPI HPI HPI: Patient is a 53-year-old female who presents for evaluation of a left back lipoma. She is referred from Dr. Talbert. 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 [employer] and . She states she first noticed this lipoma at the beginning of and it has since grown. She denies any significant tenderness. She shares that she has had knots on her bilateral lower extremities which were tested (later she shares that this means she had 1 excised) and she was informed that it merely represent a fatty tumor. She has a history of diabetes mellitus and is on Mounjaro. She shares that this has resulted in significant improvement in her blood glucose control as she has gone from an A1c of 12-7.4. She shares that she was formally 600 pounds and on disability before she was able to lose her weight naturally. She denies any history of wound healing difficulties. She has a very social habit of smoking and states that she will go a year or 2 between cigarettes. Pertinent surgical history includes: [History] ROS General General: No weight change, appetite, fatigue, colon cancer, breast cancer or weakness HEENT HEENT: No difficulty swallowing, eye injury, eye surgery, swollen glands or hoarseness Endo Endocrine: Yes diabetes mellitus; No thyroid disease, thyroid cancer, Hair loss, heat intolerance or cold intolerance Skin Skin: No rash or changing moles Musc Musculoskeletal: No back problems, arthritis, rheumatoid arthritis, gout or joint pain Cardio Cardiovascular: No murmur, pacemaker, heart disease, atrial fibrillation, high blood pressure, heart attack, heart stent, palpitations, shortness of breat with exertion or chest pain Psych Psychiatric: Yes depression and anxiety; No hearing voices Resp Respiratory: No shortness of breath, Yes sleep apnea, No cough, No COPD, Yes asthma, No emphysema and No wheezing Gastro Gastrointestinal: No abdominal pain, No nausea or vomiting, No diarrhea, No constipation, No blood in stool, No acid reflux, No hemorrhoids, No ulcers, No gallbladder problem and No black,tarry stools Rainer Hematologic: No blood thinners, No blood disorders, No bleeding, No anemia and No blood clots Neuro Neurologic: No system reviewed and no additional complaints, except as documented, No as per HPI, No abnormal gait, No abnormal hearing, No abnormal movements, No abnormal speech, No behavioral changes, No burning sensations, No confusion, No convulsions, No disequilibrium, No dizziness, No localized weakness, No frequent falls, No headache(s), No lack of coordination, No loss of vision, No memory loss, No numbness, No other visual disturbances, No radicular pain, No restless legs, No sensory deficit, No syncope, No tingling, No tremor(s), No weakness and No other Exam Const General: cooperative Skin Other: Patient with a lipomatous mass of her left posterior neck. By exam this measures approximately 4 cm x 6 cm wide. On ultrasound I am able to only capture part of the lesion which extends to a depth of approximately 1.5 cm (starting at 0.5 cm). It appears to measure approximately 6 cm wide by 3 cm tall. Assessment and Plan Assessment and Plan (1) Lipoma of back: Status: Acute Comment: This is a 53-year-old female who presents for surgical consultation related to a posterior neck/upper back lipoma on the left. She is largely asymptomatic from this lesion but has noticed some growth and wishes to have it removed before she experiences further growth in the removal process is more extensive. Both by external exam as well as ultrasound exam this does appear to be a well?encapsulated lipoma located rather superficially. However, given its location and size I am recommending that we proceed with excision in the operating room for patient's comfort. I shared with her that there will be a certain risk for seroma formation postoperatively and it is send recommend that she plan to avoid any extensive activity for 2 weeks postoperatively. I also shared with her that she should plan to refrain from work for 1 week postoperatively. To this latter point she states that she must wait to accrue more time away and will have to defer her surgery date accordingly. Plan: ? Tentatively plan for excision of left back/lower posterior neck lipoma under sedation in the operating room. I have examined the patient and the H&P has been reviewed. There are no clinical changes since date of exam. Procedure and post procedure wound care instructions were reviewed. Patient expressed understanding this information denied further questions. Proceed to the operating room for excision of the left back/lower neck lipoma under MAC sedation.
[2023-03-25] MEDS: Cefazolin 2 GM in 0.9% Normal Saline (100mL Bag) 100 ML IV (07:50)
[2023-03-25] MEDS: Bupiv/Epi 0.5% Mpf 30 ML Vial INFILT (08:20)
--- NOTE | 2023-03-25 10:06 | OP.PCM_ITS ---
Report of Operation Date of Procedure: 03/25/23 Pre-Operative Diagnosis: Left upper back lipoma Post-Operative Diagnosis: Same Surgery/Procedure Performed:: Excision of left upper back lipoma Description of Surgical Findings:: ? 10 cm x 7 cm lipoma with dense adhesions to the surrounding soft tissue ? Final wound cavity measuring 8 cm (length) x 1 cm (width) x 4 cm (depth) Surgeon: Jc Dumont plumbing hardware assembler: Carly Judge plumbing hardware assembler: Marlene Unger Type of Anesthesia: General/Supplemental and MAC/Supplemental/Local Anesthesiologist: Mohinder Hartmann Specimen's removed: Left upper back lipoma Description of Procedure: After confirming our written consents verbally, and confirming the location of patient's subcutaneous lesions through preprocedure marking via ultrasound localization, patient was positioned in a right lateral decubitus positioning on a beanbag taking care to pad any pressure points. Sedation was begun by anesthesia. The operative site was prepped and draped. A formal timeout followed to confirm patient and procedure. The preplanned line of incision was anesthetized with 0.5% bupivacaine with epinephrine. Then our incision was made sharply with a 15 blade scalpel. Dissection was carried down through the dermal layer to the subcutaneous tissue. The fatty tissue deep to this incision was then circumferentially dissected free of the surrounding subcutaneous tissue using a combination of blunt dissection and selective electrocautery. There were many dense adhesions between this semiencapsulated mass and the surrounding soft tissue that required use of electrocautery. At 1 point it was grasped with a Allis clamp and digitally I tried to free the mass from the fascia of the underlying musculature with only partial success. Once this area was better exposed I used dissection to thin out the attachments and electrocautery was used to remove it from the fascial surface. Once it was fully removed a marking suture was used to designate short superior and with long lateral . Then the cavity was irrigated and the base was inspected for hemostasis where it was found to be bleeding and the most lateral aspect. I attempted to apply selective electrocautery to the site but was unable to stop the oozing due to its diffuse nature show instead I ligated the area with a 3-0 Vicryl suture. Then the wounds were closed in layers using 2-0 Vicryl to pleat the dermis to the wound bed/muscular fascia deeply and 3-0 Vicryl for the deep dermal layer. Then a running subcuticular 4-0 Monocryl followed for the skin. Steri-Strips and bandages were applied as dressings. With the dressing intact patient's s edation was lightened and she was transferred to PACU for ongoing recovery. Grafts/Implants Used: None Complications None Procedures Integumentary 114x: [id number] Exc tr-ext b9+rocco >4.0 cm
--- NOTE | 2023-03-25 10:13 | DCINST_ITS ---
Discharge Instructions Diet Discharge Diet: No restrictions Activity Discharge Activity: May Not Drive (for 24 hours post-procedure) May shower in (days): 2 Ice area for (Minutes): 20 Lifting Restrictions: No lifting greater than 15 pounds with affected extremity for 2 weeks after Keep extremity elevated above heart level: Operative Extremity Dressing / Incision Call your doctor if your incision/area has: Continuous Slow Oozing, Sudden Increased Bleeding, Increased Pain/ Swelling, Increased Redness, Foul Smelling Discharge and Swelling at the incision site Call your doctor if you observe: Fever of 101 or Higher Remove Dressing in: 2 days (Please leave Steri-Strips intact until they fall off spontaneously or are taken off at your follow-up visit) Cleanse incision/area with: Soap & Water Follow Up Care Please Follow Up With: Jc Dumont MD When: 7 to 10 days postop Test Results: Test results from this visit will be discussed in further detail at your follow- up appointment, if applicable. Discharge Plan Admission Primary Reason for Your Visit: Lipoma excision Attending Provider: Jc Dumont Primary Care Provider: Stacey Talbert Discharge Orders/Prescriptions Prescriptions: New oxycodone 5 mg tablet 5 mg PO Q6H PRN (Reason: pain) 3 Days Qty: 10 0RF Continued cyclobenzaprine 5 mg tablet 5 mg PO TID PRN (Reason: muscle spasm) Qty: 30 1RF Levemir U-100 Insulin 100 unit/mL solution 10 unit subcut QHS Fish Oil 900-1,400 mg capsule,delayed release(DR/EC) 1,000 cap PO QHS riboflavin (vitamin B2) 400 mg tablet 400 mg PO QHS cholecalciferol (vitamin D3) 250 mcg (10,000 unit) capsule 250 mcg PO QHS Probiotic Digestive Care 20 billion cell capsule 20,000,000 cell PO DAILY Benefiber Sugar Free (dextrin) 3 gram/4 gram powder 1 packet PO DAILY Rx Instructions: mix into at least 4 oz water or juice before administering albuterol sulfate [Proventil HFA] 90 mcg/actuation HFA aerosol inhaler 2 puff inhalation Q6H PRN (Reason: shortness of breath or wheezing) ipratropium-albuterol 0.5 mg-3 mg(2.5 mg base)/3 mL solution for nebulization 3 ml inhalation Q4H PRN (Reason: wheezing) hydroxyzine pamoate 25 mg capsule 25 mg PO .QID PRN (Reason: itching) ondansetron HCl 8 mg tablet 8 mg PO TID PRN (Reason: nausea and vomiting) rizatriptan 10 mg tablet 10 mg PO ONCE PRN (Reason: migraine headache) Rx Instructions: as a single dose topiramate 50 mg tablet See Rx Instructions .ROUTE .COMPLEX Qty: 90 1RF Dose Instruction: TAKE 1 TABLET BY MOUTH EVERY DAY Rx Instructions: TAKE 1 TABLET BY MOUTH EVERY DAY doxepin 10 mg capsule 10 mg PO QHS Qty: 30 2RF fluoxetine 40 mg capsule 40 mg PO QHS benzonatate 100 mg capsule 100 mg PO TID PRN (Reason: cough) lisinopril 5 mg tablet 5 mg PO QHS Rx Instructions: TAKE 1 TABLET BY MOUTH EVERY DAY guaifenesin [Mucinex] 600 mg tablet extended release 12hr 600 mg PO Q12H PRN (Reason: congestion) cariprazine 1.5 mg capsule 1.5 mg PO QHS atorvastatin 20 mg tablet 20 mg PO QHS Qty: 90 2RF nystatin 100,000 unit/gram powder 1 applic topical TID PRN (Reason: rash) Qty: 15 0RF tirzepatide 10 mg/0.5 mL pen injector 10 mg subcut QWEEK Qty: 2 1RF Rx Instructions: failed ozempic lorazepam 1 mg tablet 1 mg PO QHS PRN (Reason: anxiety) Qty: 15 0RF Referrals / Follow Up: Stacey Talbert MD [Primary Care Provider] - Jc Dumont MD [Med Staff - Active Staff] - Disposition Disposition (needs filled in before D/C Order can be placed): Home, Self Care
[2023-03-25] MEDS: oxyCODONE 5 MG Tablet PO (11:25)
== END 2023-03-25 12:05 | disposition home or self-care (01) ==
LOC: SDC 05:44 → AC 05:46
PROVIDERS: PCP Internal Medicine; Referring Provider Surgery; Visit Provider Surgery
PROC: (CPT 11406; principal; 2023-03-25 07:15)
DX: D17.1 Benign lipomatous neoplasm of skin and subcutaneous tissue of trunk (principal); Z68.41 Body mass index [BMI] 40.0-44.9, adult; E11.9 Type 2 diabetes mellitus without complications; E78.00 Pure hypercholesterolemia, unspecified; E66.9 Obesity, unspecified; Z79.899 Other long term (current) drug therapy; K21.9 Gastro-esophageal reflux disease without esophagitis
CPT/HCPCS: 11406; 00300; 82962; 88304; J7120; J2405

== ENCOUNTER → 2023-04-08 | Outpatient (CLI) | payer OTHER, SELFPAY ==
--- NOTE | 2023-04-08 15:50 | BD_ITS ---
STUDY: DUAL ENERGY X-RAY ABSORPTIOMETRY / DXA REASON FOR EXAM: Female, 53 years old. Screening TECHNIQUE: Bone Mineral Density (BMD) measurements of lumbar spine and bilateral hips were obtained. COMPARISON: None. FINDINGS: Lumbar Spine (L1-L4): g/cm2 (0.834) / T-score (-2.4) / Z-score (-1.6) Findings are suggestive of osteopenia with a high fracture risk. Left Femur Total: g/cm2 (1.052) / T-score (0.9) / Z-score (1.4) Left Femoral Neck: g/cm2 (0.685) / T-score (-1.5) / Z-score (-0.7) Right Femur Total: g/cm2 (1.003) / T-score (0.5) / Z-score (1.0) Right Femoral Neck: g/cm2 (0.688) / T-score (-1.4) / Z-score (-0.6) BD/Dexa Bone Density Study IMPRESSION: The patient is considered osteopenic as outlined below according to World Tomas Organization (WHO) criteria with a high fracture risk. Reference Information: The T-score is the number of standard deviations above or below the standard which is normal for young adults at their peak bone mineral density. The World Health Organization (WHO) interprets the T-scores as follows: Above -1 Normal bone density Between -1 and -2.5 Osteopenia Equal to / or below -2.5 Osteoporosis As a practical clinical guideline, osteopenia may be graded as follows: Mild -1 through -1.5 Moderate -1.6 through -2.0 Severe -2.1 through -2.4 The Z-score is the number of standard deviations above or below age-matched controls. A Z-score of less than -1.5 would be considered abnormal. References: 1. NIH Osteoporosis and Related Bone Diseases www osteo.org 2. International Society for Clinical Densitometry www iscd.org 3. National Osteoporosis Foundation www nof.org Electronically Signed: Jaxson Lucero MD at 8:32 EST ,
== END | disposition home or self-care (01) ==
LOC: OPBD 15:37
PROVIDERS: PCP Internal Medicine; Referring Provider Internal Medicine; Visit Provider Internal Medicine
DX: Z78.0 Asymptomatic menopausal state (principal)
CPT/HCPCS: 77080

== ENCOUNTER → 2023-08-18 | Outpatient (CLI) | payer BC, SELFPAY ==
[2023-08-18 07:12] LABS: Absolute Lymphocyte Count 3.39 X10^3/uL (0.83-4.51); Basophil# 0.08 X10^3/uL; Basophil% 0.9 % (0-1); Eosinophil# 0.14 X10^3/uL; Eosinophils% 1.5 % (0-5); Hematocrit 42.4 % (37-47); Hemoglobin 13.7 g/dL (12.0-15.0); Lymphocyte # 3.39 X10^3/ul (0.83-4.51); Lymphocyte % 36.2 % (19-41); Mean Corp Hgb Conc 32.3 g/dL (32-36); Mean Corpuscular Hgb 29.1 pg (27.0-32.0); Monocyte# 0.69 X10^3/uL; Monocyte% 7.4 % (0-10); NRBC Flagged by Analyzer 0 % (0-5); Neutrophil # 4.97 X10^3/uL (2.7-7.7); Platelet Count 255 K/mm3 (150-450); RBC Distribution Width CV 12.2 % (11.6-14.6); RBC Distribution Width SD 39.7 fl (35.1-43.9); Red Blood Count 4.71 M/mm3 (4.2-5.4); White Blood Count 9.4 K/mm3 (4.4-11.0)
[2023-08-18 07:43] LABS: ALB/GLOB Ratio 0.8 RATIO (0.9-2.4); AST(SGOT) 20 U/L (15-37); Alanine Aminotransfer ALT/SGPT 36 U/L (13-56); Albumin, Serum 3.3 g/dL (3.2-5.0); Alkaline Phosphatase 123 U/L (45-117); Anion Gap 6 (5-15); BUN 13 mg/dL (7-18); Calcium,Total 8.8 mg/dL (8.5-10.1); Chloride 104 mmol/L (98-107); Cholesterol 180 mg/dL (200); Creatinine, Serum 0.87 mg/dL (0.55-1.02); EST Glomerular Filtration Rate 73 mL/min (>60); Est Glom Filt Rate - Afr Amer 89 mL/min (>60); Globulin 3.9 g/dL (2.2-4.2); Glucose 345 mg/dL (74-106); High Density Lipoprotein 59 mg/dL; Potassium 3.9 mmol/L (3.5-5.1); Protein, Total 7.2 g/dL (6.4-8.2); Sodium Level 136 mmol/L (136-145); Triglycerides 267 mg/dL; Very Low Density Lipoprotein 53 mg/dL (5-40)
[2023-08-18 07:51] LABS: Microalbumin,Random Urine 25.2 mg/L (NO RANGE EST.); Microalbumin:Creatinine Ratio 9.8 mg/g CRE (<30 mg/g CRE)
== END | disposition home or self-care (01) ==
LOC: LAB 06:35
PROVIDERS: PCP Internal Medicine; Referring Provider Internal Medicine; Visit Provider Internal Medicine
DX: E11.9 Type 2 diabetes mellitus without complications (principal); Z79.4 Long term (current) use of insulin
CPT/HCPCS: 36415; 80053; 80061; 82043; 82570; 85025

== ENCOUNTER 2023-09-04 02:17 | Emergency (ER) | payer BC, SELFPAY ==
[2023-09-04 02:18] VITALS: BP 125/71; PULSE 76; RESP 16; TEMP 37; O2SAT 98; BMI 48.2
--- NOTE | 2023-09-04 02:24 | RAD_ITS ---
EXAM: XR Foot Min 3 Views INDICATION: Female, 53 years old. Right foot pain TECHNIQUE: AP, lateral, and oblique views COMPARISON: None FINDINGS: BONES: No acute fracture. No lytic or blastic lesion. Small plantar calcaneal spur. JOINTS: Joints are in normal alignment. No periarticular degenerative or inflammatory change. SOFT TISSUES: No soft tissue abnormality. RAD/Foot min 3 Views IMPRESSION: No acute abnormality of the right foot Electronically Signed: Austin Lopez MD at 3:26 EDT ,
--- NOTE | 2023-09-04 02:25 | ED.VIS.LOWEX ---
HPI History of Present Illness Chief Complaint: Lower Extremity Injury Informant: patient Narrative Narrative: Patient presents today for right foot pain. 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 She has had elevated with ice for the past half hour without significant improvement. She does have a history of diabetes reports very mild neuropathy. [facility] Medical History Wears glasses Fatty liver CPAP (continuous positive airway pressure) dependence Sleep apnea Shortness of breath on exertion Former smoker Major depressive disorder JESÚS (obstructive sleep apnea) Ectopic Binge eating disorder Renal cyst, acquired, right Obesity Depression Anxiety PTSD (post-traumatic stress disorder) Pityriasis versicolor Agoraphobia Insomnia Post-menopausal Vitamin B deficiency Vitamin D deficiency GERD (gastroesophageal reflux disease) History of pneumonia Osteoarthritis of lumbar spine Non-alcoholic fatty liver disease Kidney stones High triglycerides Hypercholesterolemia Migraines IBS (irritable bowel syndrome) DMII (diabetes mellitus, type 2) History of back problems Asthma Seasonal allergies Home Medications ?Medication ?Instructions ?Recorded ?Last Taken ?Type albuterol sulfate 90 mcg/actuation 2 puff inhalation Q6H PRN 04/22/22 Unknown History aerosol inhaler (Proventil HFA) shortness of breath or wheezing hydroxyzine pamoate 25 mg capsule 25 mg PO .QID PRN itching 04/22/22 Unknown History insulin detemir U-100 100 unit/mL 15 unit subcut QHS 04/22/22 Unknown History subcutaneous solution (Levemir U-100 Insulin) ipratropium 0.5 mg-albuterol 3 mg 3 ml inhalation Q4H PRN wheezing 04/22/22 Unknown History (2.5 mg base)/3 mL nebulization soln ondansetron HCl 8 mg tablet 8 mg PO TID PRN nausea and vomiting 04/22/22 Unknown History cyclobenzaprine 5 mg tablet 5 mg PO TID PRN muscle spasm #30 04/30/22 Unknown Rx tabs nystatin 100,000 unit/gram topical 1 applic topical TID PRN rash #15 08/27/22 Unknown Rx powder grams rizatriptan 10 mg tablet 10 mg PO ONCE PRN migraine headache 12/03/22 Unknown History guaifenesin 600 mg tablet, 600 mg PO Q12H PRN congestion 03/17/23 Unknown History extended release 12 hr (Mucinex) lorazepam 1 mg tablet 1 mg PO QHS PRN anxiety #15 tabs 03/25/23 Unknown Rx atorvastatin 20 mg tablet 20 mg PO QHS #90 tabs 04/14/23 Unknown Rx lisinopril 5 mg tablet 5 mg PO QHS #90 tabs 04/14/23 Unknown Rx blood-glucose meter,continuous #1 ea 08/04/23 Unknown Rx (FreeStyle Tano 3 [place]) blood-glucose sensor (FreeStyle #1 ea 08/04/23 Unknown Rx Tano 3 Sensor device) tirzepatide 5 mg/0.5 mL 5 mg (0.5 mL) subcut QWEEK #2 mL 08/04/23 Unknown Rx subcutaneous pen injector cariprazine 1.5 mg capsule 1.5 mg PO QHS #90 caps 09/02/23 Unknown Rx doxepin 10 mg capsule 10 mg PO QHS #90 caps 09/02/23 Unknown Rx fluoxetine 40 mg capsule 40 mg PO QHS #90 caps 09/02/23 Unknown Rx topiramate 50 mg tablet See Rx Instructions .Route 09/02/23 Unknown Rx .COMPLEX #90 tabs naproxen 500 mg tablet (Naprosyn) 500 mg PO BID PRN pain #10 tabs 09/04/23 Unknown Rx Allergy/AdvReac Type Severity Reaction Status Date / Time morphine Allergy Severe Vomiting Verified 09/04/23 02:19 nalbuphine (From Nubain) Allergy Severe Other Verified 09/04/23 02:19 prednisone Allergy Severe Hives Verified 09/04/23 02:19 Family History Mother Anxiety Asthma Arthritis Bowel disease Breast cancer Depression Myocardial infarction Heart disease Hypertension Mental disorder Sister Anxiety Asthma Depression Seizure disorder Grandmother Arthritis Diabetes Colon cancer Brother Asthma History of blood clots Mental disorder tbi Son Precancerous skin lesion Surgical History S/P excision of lipoma History of esophagogastroduodenoscopy History of total hysterectomy Hx of cholecystectomy History of partial hysterectomy Social History household members: spouse current occupational status: employed Smoking Status: Current some day smoker tobacco type: cigarettes Electronic Cigarette Use: not used alcohol intake: current alcohol intake frequency: holidays/special occasions only substance use type: does not use what type of physical activity do you participate in: none do you feel safe at home: Yes ROS ROS ED Constitutional Constitutional ED: Denies fever(s) ENT ENT ED: Denies rhinorrhea Cardiovascular Cardiovascular: Denies chest pain Respiratory/Chest Respiratory/Chest: Denies cough or dyspnea Gastrointestinal Gastrointestinal: Denies abdominal pain, nausea or vomiting Musculoskeletal Musculoskeletal: Reports extremity pain Integumentary Denies Abrasions or rash Neurologic Neurologic: Reports paresthesias; Denies weakness Psychiatric Psychiatric: Denies anxiety or depression Allergic/Immunologic Allergic/Immunologic ED: Denies lip swelling or urticaria EXAM Physical Exam Const Vital Signs: 09/04/23 02:18 Temperature 98.6 F Temperature Source Temporal Pulse Rate 76 Respiratory Rate 16 Blood Pressure 125/71 H Blood Pressure Mean 89 Pulse Ox 98 Oxygen Delivery Method Room Air Positive well nourished and well developed General Appearance ED: well developed HEENT Reports moist mucous membranes Chest Wall inspection of chest normal and palpation of chest normal Resp normal respiratory effort and clear to auscultation bilaterally Cardio regular rate and regular rhythm Extremity Extremity Narrative: Tenderness to palpation on the dorsal surface of the foot over the lateral tarsal bones. No overlying skin change. No edema. Good distal pulses with normal sensation. No tenderness at the knee or proximal fibula. Neuro oriented x3, moves all extremities and no sensory deficits noted Psych mental status grossly normal MDM MDM MDM Narrative Medical decision making narrative: Patient given dose of Naprosyn. Right foot x-rays obtained to evaluate for any acute bony fracture. Radiography Diagnostic Testing: Clinical Impression(s) from Imaging Studies Foot X-Ray 09/04/23 02:24 IMPRESSION: No acute abnormality of the right foot Electronically Signed: Austin Lopez MD at 3:26 EDT , Treatment and Re-Evaluation Narrative: Right foot x-ray my dictation reveals no evidence of any fracture. Radiology interpretation reviewed and agrees. Test results discussed with the patient. Ignacio wrap was applied to the right foot. I will give her a 5-day course of naproxen to help with pain. She is unable to take steroids secondary to an allergy. I will write her work restrictions for tonight, then she states she is off for the next several days. Discharge Plan Triage Chief Complaint: Lower Extremity Injury ED Provider: Doreen Dunaway Dx/Rx/DC Orders Clinical Impression: Foot sprain Instructions: ED Foot Sprain Prescriptions: New naproxen [Naprosyn] 500 mg tablet 500 mg PO BID PRN (Reason: pain) Qty: 10 0RF No Action cyclobenzaprine 5 mg tablet 5 mg PO TID PRN (Reason: muscle spasm) Qty: 30 1RF Levemir U-100 Insulin 100 unit/mL solution 15 unit subcut QHS albuterol sulfate [Proventil HFA] 90 mcg/actuation HFA aerosol inhaler 2 puff inhalation Q6H PRN (Reason: shortness of breath or wheezing) ipratropium-albuterol 0.5 mg-3 mg(2.5 mg base)/3 mL solution for nebulization 3 ml inhalation Q4H PRN (Reason: wheezing) hydroxyzine pamoate 25 mg capsule 25 mg PO .QID PRN (Reason: itching) ondansetron HCl 8 mg tablet 8 mg PO TID PRN (Reason: nausea and vomiting) rizatriptan 10 mg tablet 10 mg PO ONCE PRN (Reason: migraine headache) Rx Instructions: as a single dose tirzepatide 5 mg/0.5 mL pen injector 5 mg subcut QWEEK Qty: 2 0RF (DME) FreeStyle Tano 3 [place] Misc See Rx Instructions .Route Qty: 1 0RF Rx Instructions: As directed (DME) FreeStyle Tano 3 Sensor Device See Rx Instructions .Route Qty: 1 0RF Rx Instructions: As directed doxepin 10 mg capsule 10 mg PO QHS Qty: 90 1RF topiramate 50 mg tablet See Rx Instructions .ROUTE .COMPLEX Qty: 90 1RF Dose Instruction: TAKE 1 TABLET BY MOUTH EVERY DAY Rx Instructions: TAKE 1 TABLET BY MOUTH EVERY DAY fluoxetine 40 mg capsule 40 mg PO QHS Qty: 90 1RF cariprazine 1.5 mg capsule 1.5 mg PO QHS Qty: 90 1RF guaifenesin [Mucinex] 600 mg tablet extended release 12hr 600 mg PO Q12H PRN (Reason: congestion) nystatin 100,000 unit/gram powder 1 applic topical TID PRN (Reason: rash) Qty: 15 0RF lorazepam 1 mg tablet 1 mg PO QHS PRN (Reason: anxiety) Qty: 15 0RF lisinopril 5 mg tablet 5 mg PO QHS Qty: 90 1RF Rx Instructions: TAKE 1 TABLET BY MOUTH EVERY DAY atorvastatin 20 mg tablet 20 mg PO QHS Qty: 90 1RF Stand Alone Forms: ED Work / School Excuse Primary Care Provider: Stacey Talbert Referrals: Stacey Talbert MD [Primary Care Provider] - 1 Week Print Language: [place] Island[place] Disposition Disposition: Home, Self Care
[2023-09-04] MEDS: Naproxen 500 MG Tablet PO (02:47)
[2023-09-04 03:45] VITALS: BP 116/68; PULSE 66; RESP 18; TEMP 35.8; O2SAT 96
== END 2023-09-04 03:46 | disposition home or self-care (01) ==
PROVIDERS: Emergency Provider Emergency Medicine; PCP Internal Medicine; Visit Provider Emergency Medicine
DX: S93.601A Unspecified sprain of right foot, initial encounter (principal); E11.9 Type 2 diabetes mellitus without complications; E78.00 Pure hypercholesterolemia, unspecified; F17.210 Nicotine dependence, cigarettes, uncomplicated; K21.9 Gastro-esophageal reflux disease without esophagitis; J45.909 Unspecified asthma, uncomplicated; X58.XXXA Exposure to other specified factors, initial encounter
CPT/HCPCS: 73630; 99282

== ENCOUNTER 2024-02-25 12:23 | Emergency (ER) | payer SELFPAY ==
[2024-02-25 12:24] VITALS: PULSE 76; RESP 16; TEMP 36.4; O2SAT 98
[2024-02-25 12:28] VITALS: BP 117/79
--- NOTE | 2024-02-25 13:19 | ED.RN ---
NO OLD DIANEG
--- NOTE | 2024-02-25 13:30 | RAD_ITS ---
STUDY: X-RAY CHEST REASON FOR EXAM: Female, 54 years old. Chest pain TECHNIQUE: Single AP portable view of the chest. COMPARISON: Comparison is made with prior study dated October 26, 2022. FINDINGS: EKG electrodes are seen. Stable increased markings at the left lung base. This may represent scarring. There is no demonstrated pleural abnormality. Normal size heart. Normal mediastinum and jakob. Normal visualized pulmonary arteries. Normal visualized aortic arch and descending thoracic aorta. There are diffuse degenerative changes of the visualized thoracic spine. Normal visualized ribs, clavicles, and shoulders. There is no demonstrated abnormality of the visualized soft tissue structures of the upper abdomen. RAD/Chest 1 View (Portable) IMPRESSION: Stable increased markings at the left lung base suggestive of scarring. Electronically Signed: Jaxson Lucero MD at 13:50 EST ,
--- NOTE | 2024-02-25 13:37 | ED.VIS.CHEST ---
HPI History of Present Illness Chief Complaint: Chest Pain Informant: patient and EMS Narrative Narrative: 54-year-old female presenting to the emergency room with a chief complaint of left-sided chest pain. Patient states over the past couple days she has had a discomfort just to the left side of her chest. She notes that it is more of a pressure feeling and occasionally sharp in nature. The patient states that she noticed that seemed worse today and her left arm was hurting and she was nauseated. Patient denies any significant cough. She notes the pain seems to be worse when she breathes. She does note some discomfort in the left upper back but states it feels more muscular and she has not lifted anything strenuous. Patient states that she occasionally smokes while playing cards. She reports no prior history with DVT PE or her aorta. She does not take a blood thinner. [facility] Medical History Wears glasses Fatty liver CPAP (continuous positive airway pressure) dependence Sleep apnea Shortness of breath on exertion Former smoker Major depressive disorder JESÚS (obstructive sleep apnea) Ectopic Binge eating disorder Renal cyst, acquired, right Obesity Depression Anxiety PTSD (post-traumatic stress disorder) Pityriasis versicolor Agoraphobia Insomnia Post-menopausal Vitamin B deficiency Vitamin D deficiency GERD (gastroesophageal reflux disease) History of pneumonia Osteoarthritis of lumbar spine Non-alcoholic fatty liver disease Kidney stones High triglycerides Hypercholesterolemia Migraines IBS (irritable bowel syndrome) DMII (diabetes mellitus, type 2) History of back problems Asthma Seasonal allergies Home Medications ?Medication ?Instructions ?Recorded ?Last Taken ?Type albuterol sulfate 90 mcg/actuation 2 puff inhalation Q6H PRN 04/22/22 Unknown History aerosol inhaler (Proventil HFA) shortness of breath or wheezing hydroxyzine pamoate 25 mg capsule 25 mg PO .QID PRN itching 04/22/22 Unknown History insulin detemir U-100 100 unit/mL 15 unit subcut QHS 04/22/22 Unknown History subcutaneous solution (Levemir U-100 Insulin) ipratropium 0.5 mg-albuterol 3 mg 3 ml inhalation Q4H PRN wheezing 04/22/22 Unknown History (2.5 mg base)/3 mL nebulization soln ondansetron HCl 8 mg tablet 8 mg PO TID PRN nausea and vomiting 04/22/22 Unknown History cyclobenzaprine 5 mg tablet 5 mg PO TID PRN muscle spasm #30 04/30/22 Unknown Rx tabs nystatin 100,000 unit/gram topical 1 applic topical TID PRN rash #15 08/27/22 Unknown Rx powder grams guaifenesin 600 mg tablet, 600 mg PO Q12H PRN congestion 03/17/23 Unknown History extended release 12 hr (Mucinex) lorazepam 1 mg tablet 1 mg PO QHS PRN anxiety #15 tabs 03/25/23 Unknown Rx atorvastatin 20 mg tablet 20 mg PO QHS #90 tabs 04/14/23 Unknown Rx lisinopril 5 mg tablet 5 mg PO QHS #90 tabs 04/14/23 Unknown Rx blood-glucose meter,continuous #1 ea 08/04/23 Unknown Rx (FreeStyle Tano 3 [place]) blood-glucose sensor (FreeStyle #1 ea 08/04/23 Unknown Rx Tano 3 Sensor device) doxepin 10 mg capsule 10 mg PO QHS #90 caps 09/02/23 Unknown Rx naproxen 500 mg tablet (Naprosyn) 500 mg PO BID PRN pain #10 tabs 09/04/23 Unknown Rx cariprazine 1.5 mg capsule 1.5 mg PO QHS #90 caps 01/19/24 Unknown Rx fluoxetine 40 mg capsule 40 mg PO QHS #90 caps 01/19/24 Unknown Rx topiramate 50 mg tablet See Rx Instructions .Route 01/19/24 Unknown Rx .COMPLEX #90 tabs tirzepatide 10 mg/0.5 mL 10 mg (0.5 mL) subcut QWEEK #2 mL 01/21/24 Unknown Rx subcutaneous pen injector ubrogepant 50 mg tablet (Ubrelvy) 50 mg PO ONCE #10 tabs 01/26/24 Unknown Rx Allergy/AdvReac Type Severity Reaction Status Date / Time morphine Allergy Severe Vomiting Verified 01/21/24 14:16 nalbuphine (From Nubain) Allergy Severe Other Verified 01/21/24 14:16 prednisone Allergy Severe Hives Verified 01/21/24 14:16 Family History Mother Anxiety Asthma Arthritis Bowel disease Breast cancer Depression Myocardial infarction Heart disease Hypertension Mental disorder Sister Anxiety Asthma Depression Seizure disorder Grandmother Arthritis Diabetes Colon cancer Brother Asthma History of blood clots Mental disorder tbi Son Precancerous skin lesion Surgical History S/P excision of lipoma History of esophagogastroduodenoscopy History of total hysterectomy Hx of cholecystectomy History of partial hysterectomy Social History household members: spouse current occupational status: employed Smoking Status: Current some day smoker tobacco type: cigarettes Electronic Cigarette Use: not used alcohol intake: current alcohol intake frequency: holidays/special occasions only substance use type: does not use what type of physical activity do you participate in: none do you feel safe at home: Yes ROS ROS ED Constitutional Constitutional ED: Denies chills, fever(s) or weight loss Eyes Eyes: Denies change in vision or diplopia ENT ENT ED: Denies ear pain, rhinorrhea or sore throat Cardiovascular Cardiovascular: Reports chest pain; Denies orthopnea, palpitations or racing heartbeat Respiratory/Chest Respiratory/Chest: Denies cough, dyspnea or orthopnea Gastrointestinal Gastrointestinal: Reports nausea; Denies abdominal pain, diarrhea or vomiting Genitourinary Genitourinary ED: Denies dysuria, hematuria or urinary frequency Musculoskeletal Musculoskeletal: Denies arthralgias or myalgias Integumentary Denies abscess or rash Neurologic Neurologic: Denies headache(s) or weakness Psychiatric Psychiatric: Denies anxiety, depression, suicidal ideation or suicidal thoughts Endocrine Endocrinology: Denies polydipsia, polyphagia or polyuria Allergic/Immunologic Allergic/Immunologic ED: Denies mouth swelling, tongue swelling or urticaria EXAM Physical Exam Const Vital Signs: 02/25/24 12:24 02/25/24 12:28 02/25/24 12:28 Temperature 97.5 F L Temperature Source Oral Pulse Rate 76 Respiratory Rate 16 Respiratory Effort Normal Non-Labored Blood Pressure 117/79 Blood Pressure Mean 91 Pulse Ox 98 Oxygen Delivery Method Room Air 02/25/24 13:17 02/25/24 14:23 Temperature Temperature Source Pulse Rate 66 Respiratory Rate Respiratory Effort Blood Pressure 116/101 H Blood Pressure Mean 106 Pulse Ox 97 Oxygen Delivery Method Room Air Positive well nourished, well developed and obese General Appearance ED: well developed and NAD Nutritional Appearance: obese HEENT Reports normocephalic, head/scalp atraumatic and moist mucous membranes Eyes PERRL and EOMs intact bilaterally Neck no lymphadenopathy, supple and no JVD Chest Wall Chest Narrative: Mild tenderness to palpation along the left costochondral sternal border Resp normal respiratory effort and clear to auscultation bilaterally Cardio regular rate, regular rhythm and no murmurs GI normal to inspection, nondistended, normoactive bowel sounds and non-tender Palpation: soft Back/Spine no CVA tenderness and normal ROM Extremity normal to inspection General Extremety ED: Negative for edema General Extremity: Negative for edema Neuro oriented x3 and CN's II-XII intact bilaterally Sensorium / Orientation: alert Motor Exam: strength 5/5 throughout Psych mental status grossly normal Mood & Affect: Negative for depressed or tearful Skin no rashes or lesions noted and no wounds MDM MDM MDM Narrative Medical decision making narrative: Differential diagnosis includes but not limited to acute coronary syndrome pericarditis myocarditis pneumonia costochondritis pleurisy pulmonary embolism aortic dissection no pneumonia or effusion White count 10.9 hemoglobin 13.1 platelet count is 276. D-dimer slightly elevated 0.74. Troponin is less than 3. Patient's EKG is nonischemic showing a sinus rhythm at a ventricular rate of 67 bpm. My independent interpretation of the chest x-ray is no acute process. Given the patient's symptomology and her elevated D-dimer a CTA of the chest was obtained. This is negative for pulmonary embolism or dissection. Patient received Toradol and Zofran. She has had no events on the monitor. I believe the patient can be discharged home. Patient to follow-up with primary care if not improving return if worsening History & Record Review Discussion w/independent historian: EMS personnel and Patient Lab Data Attestation: I reviewed the patient's lab results. Labs: Laboratory Results - last 24 hr 02/25/24 12:30 WBC 10.9 RBC 4.46 Hgb 13.1 Hct 40.3 MCV 90.4 MCH 29.4 MCHC 32.5 RDW Std Deviation 39.5 RDW Coeff of [place]ille 12.0 Plt Count 276 MPV 12.1 H Immature Gran % (Auto) 0.600 Neut % (Auto) 63.7 Lymph % (Auto) 28.6 Gladwin % (Auto) 5.5 Eos % (Auto) 1.0 Baso % (Auto) 0.6 Absolute Neuts (auto) 6.9 Absolute Lymphs (auto) 3.11 Nucleated RBC % 0 D-Dimer Quant (PE/DVT) 0.74 H* Sodium 138 Potassium 3.7 Chloride 106 Carbon Dioxide 27.0 Anion Gap 5 BUN 15 Creatinine 0.76 Est GFR (MDRD) Af Amer 102 Est GFR (MDRD) Non-Af 84 BUN/Creatinine Ratio 19.6 Glucose 147 H Calcium 9.2 Troponin I High Sens < 3 L Radiography Diagnostic Testing: Clinical Impression(s) from Imaging Studies Chest X-Ray 02/25/24 13:30 IMPRESSION: Stable increased markings at the left lung base suggestive of scarring. Electronically Signed: Jaxson Lucero MD at 13:50 EST , Chest CTA 02/25/24 14:31 IMPRESSION: No evidence of pulmonary embolism. Minimal scarring in the lingular segment of the left upper lobe. Electronically Signed: Jaxson Lucero MD at 15:09 EST , EKG Initial EKG: Attestation: I personally reviewed and interpreted this EKG as follows: Comments: Normal sinus rhythm ventricular rate of 67 bpm Discharge Plan Triage Chief Complaint: Chest Pain ED Provider: Prasanth Desai Dx/Rx/DC Orders Prescriptions: No Action cyclobenzaprine 5 mg tablet 5 mg PO TID PRN (Reason: muscle spasm) Qty: 30 1RF Levemir U-100 Insulin 100 unit/mL solution 15 unit subcut QHS albuterol sulfate [Proventil HFA] 90 mcg/actuation HFA aerosol inhaler 2 puff inhalation Q6H PRN (Reason: shortness of breath or wheezing) ipratropium-albuterol 0.5 mg-3 mg(2.5 mg base)/3 mL solution for nebulization 3 ml inhalation Q4H PRN (Reason: wheezing) hydroxyzine pamoate 25 mg capsule 25 mg PO .QID PRN (Reason: itching) ondansetron HCl 8 mg tablet 8 mg PO TID PRN (Reason: nausea and vomiting) (DME) FreeStyle Tano 3 [place] Misc See Rx Instructions .Route Qty: 1 0RF Rx Instructions: As directed (DME) FreeStyle Tano 3 Sensor Device See Rx Instructions .Route Qty: 1 0RF Rx Instructions: As directed doxepin 10 mg capsule 10 mg PO QHS Qty: 90 1RF cariprazine 1.5 mg capsule 1.5 mg PO QHS Qty: 90 1RF fluoxetine 40 mg capsule 40 mg PO QHS Qty: 90 1RF topiramate 50 mg tablet See Rx Instructions .ROUTE .COMPLEX Qty: 90 1RF Dose Instruction: TAKE 1 TABLET BY MOUTH EVERY DAY Rx Instructions: TAKE 1 TABLET BY MOUTH EVERY DAY tirzepatide 10 mg/0.5 mL pen injector 10 mg subcut QWEEK Qty: 2 1RF guaifenesin [Mucinex] 600 mg tablet extended release 12hr 600 mg PO Q12H PRN (Reason: congestion) naproxen [Naprosyn] 500 mg tablet 500 mg PO BID PRN (Reason: pain) Qty: 10 0RF nystatin 100,000 unit/gram powder 1 applic topical TID PRN (Reason: rash) Qty: 15 0RF lorazepam 1 mg tablet 1 mg PO QHS PRN (Reason: anxiety) Qty: 15 0RF lisinopril 5 mg tablet 5 mg PO QHS Qty: 90 1RF Rx Instructions: TAKE 1 TABLET BY MOUTH EVERY DAY atorvastatin 20 mg tablet 20 mg PO QHS Qty: 90 1RF Ubrelvy 50 mg tablet 50 mg PO ONCE Qty: 10 0RF Rx Instructions: as a single dose; may repeat once in >=2 hours after first dose if needed Primary Care Provider: Stacey Talbert Referrals: Stacey Talbert MD [Primary Care Provider] - Print Language: Serbian
[2024-02-25 13:38] LABS: Absolute Lymphocyte Count 3.11 X10^3/uL (0.83-4.51); Absolute Neutrophil Count 6.9 X10^3/uL (2.0-7.7); Basophil# 0.06 X10^3/uL; Basophil% 0.6 % (0-1); Eosinophil# 0.11 X10^3/uL; Hematocrit 40.3 % (37-47); Hemoglobin 13.1 g/dL (12.0-15.0); Lymphocyte # 3.11 X10^3/ul (0.83-4.51); Lymphocyte % 28.6 % (19-41); Mean Corp Hgb Conc 32.5 g/dL (32-36); Mean Corpuscular Hgb 29.4 pg (27.0-32.0); Mean Corpuscular Volume 90.4 fL (81-99); Mean Platelet Vol. 12.1 fl (6.2-12.0); Monocyte% 5.5 % (0-10); NRBC Flagged by Analyzer 0 % (0-5); Neutrophil # 6.92 X10^3/uL (2.7-7.7); Neutrophil % 63.7 % (47-70); Platelet Count 276 K/mm3 (150-450); RBC Distribution Width SD 39.5 fl (35.1-43.9); Red Blood Count 4.46 M/mm3 (4.2-5.4); White Blood Count 10.9 K/mm3 (4.4-11.0)
[2024-02-25] MEDS: Ketorolac 30 MG/ML Syringe IV (13:38)
[2024-02-25] MEDS: Ondansetron 4 MG/2 ML Vial IV (13:38)
[2024-02-25 13:49] LABS: Anion Gap 5 (5-15); BUN 15 mg/dL (7-18); BUN/Creat Ratio 19.6 RATIO (10-20); Calcium,Total 9.2 mg/dL (8.5-10.1); Chloride 106 mmol/L (98-107); Creatinine, Serum 0.76 mg/dL (0.55-1.02); EST Glomerular Filtration Rate 84 mL/min (>60); Est Glom Filt Rate - Afr Amer 102 mL/min (>60); Glucose 147 mg/dL (74-106); Potassium 3.7 mmol/L (3.5-5.1); Sodium Level 138 mmol/L (136-145); Troponin-I HS (w/2H Reflex) < 3 pg/mL (3.0-54.0)
[2024-02-25 14:23] VITALS: BP 116/101; PULSE 66; O2SAT 97
[2024-02-25 14:25] LABS: D-Dimer Quantitative (DVT/PE) 0.74 FEU/ug/m (0.27-0.49)
--- NOTE | 2024-02-25 14:31 | CT_ITS ---
STUDY: CTA CHEST REASON FOR EXAM: Female, 54 years old. Pulmonary embolism RADIATION DOSAGE (If Supplied By Facility): CTDIvol = ( 18.60 ) mGy, DLP = ( 507.80 ) mGycm TECHNIQUE: The examination was performed with the intravenous administration of IV 100mL [id number]-370. Post-processing of the angiographic images was performed, with multiplanar reformation and 3D reconstruction. Individualized dose optimization techniques were used for this CT. COMPARISON: Comparison is made with prior chest radiograph done February 25, 2024. FINDINGS: Normal enhancement of the main pulmonary artery and right and left pulmonary arteries. Normal enhancement of the bilateral peripheral pulmonary arteries. There is no demonstrated pulmonary embolism. Normal thoracic aorta and visualized great vessels. There is no demonstrated aortic dissection. Normal heart and pericardium. No significant coronary artery calcification is seen. Normal mediastinum. Normal hilar regions. Normal visualized trachea and bronchi. The lungs are well expanded. Minimal degree of the scarring in the lingular segment of the left upper lobe. Normal pleura. Normal chest wall structures. There are degenerative changes of thoracic spine. Normal visualized upper abdomen. CT/CTA Chest W/WO Contrast IMPRESSION: No evidence of pulmonary embolism. Minimal scarring in the lingular segment of the left upper lobe. Electronically Signed: Jaxson Lucero MD at 15:09 EST ,
[2024-02-25 15:25] VITALS: BP 124/86; PULSE 62; RESP 19; TEMP 36.3; O2SAT 100
[2024-02-25 15:30] LABS: Reflex Troponin-HS? (from REC) Y
== END 2024-02-25 15:29 | disposition home or self-care (01) ==
PROVIDERS: Emergency Provider Emergency Medicine; PCP Internal Medicine; Visit Provider Emergency Medicine
DX: R07.89 Other chest pain (principal); E11.9 Type 2 diabetes mellitus without complications; E78.00 Pure hypercholesterolemia, unspecified; K21.9 Gastro-esophageal reflux disease without esophagitis; J45.909 Unspecified asthma, uncomplicated; F17.210 Nicotine dependence, cigarettes, uncomplicated; E66.9 Obesity, unspecified

== ENCOUNTER → 2024-04-23 | Outpatient (CLI) | payer OTHER, SELFPAY ==
--- NOTE | 2024-04-23 07:15 | BI_ITS ---
PROCEDURE: SCRN MAMM (CAD)W/RAQUEL BILAT REASON FOR EXAM: F, Age 54 y/o , SCREENING. No family history of breast cancer TECHNIQUE: Bilateral screening digital breast tomosynthesis with 2D and 3D images. Computer aided detection. COMPARISON: 08/27/2022 FINDINGS: The breasts are almost entirely fatty. No suspicious masses, areas of developing architectural distortion, or suspicious calcifications. BI/SCRN MAMM (CAD)W/RAQUEL BILAT IMPRESSION: There is no mammographic evidence of malignancy. BI-RADS 1: NEGATIVE. RECOMMEND ANNUAL MAMMOGRAPHIC SCREENING. Follow-up code: Routine Follow-up The patient will be notified of the results by letter. Reading Location: [id number]
== END | disposition home or self-care (01) ==
LOC: OPBI 07:03
PROVIDERS: PCP Internal Medicine; Referring Provider Internal Medicine; Visit Provider Internal Medicine
DX: Z12.31 Encounter for screening mammogram for malignant neoplasm of breast (principal)
CPT/HCPCS: 77063; 77067

== ENCOUNTER 2024-05-12 00:13 | Emergency (ER) | payer OTHER, SELFPAY ==
[2024-05-12 00:16] VITALS: BP 140/76; PULSE 76; RESP 18; TEMP 36.6; O2SAT 96; BMI 47.3
--- NOTE | 2024-05-12 00:50 | ED.VIS.FEGU ---
HPI HPI - Female History of Present Illness Chief Complaint: Complaint Informant: patient Pain Pain: Positive for - (Vaginal yeast infection. 1 week.) Onset: Days Context: Gradual Onset Timing: Continuous Current Severity: Mild Maximum Severity: Mild Bleeding Issue: Positive for Vaginal bleeding Current Severity: Spotting Associated Symptoms Associated Symptoms: Negative for Dysuria, Frequency, Urgency or Hematuria Narrative Narrative: 54-year-old female history of prior total hysterectomy and diabetes. States that she was using a urinary incontinence pad last week and a reaction to it. Developed a yeast infection tried to treat it with [id number] antifungal cream is just gotten worse she is having discomfort and burning. Denies any dysuria prior to the episode. She is having some mild bleeding. She has had yeast infections before and treated them successfully [id number]. Prior similar symptoms: Yes Recent Illness/Hospitalization: No PFSH PFSH Medical History Wears glasses Fatty liver CPAP (continuous positive airway pressure) dependence Sleep apnea Shortness of breath on exertion Former smoker Major depressive disorder JESÚS (obstructive sleep apnea) Ectopic Binge eating disorder Renal cyst, acquired, right Obesity Depression Anxiety PTSD (post-traumatic stress disorder) Pityriasis versicolor Agoraphobia Insomnia Post-menopausal Vitamin B deficiency Vitamin D deficiency GERD (gastroesophageal reflux disease) History of pneumonia Osteoarthritis of lumbar spine Non-alcoholic fatty liver disease Kidney stones High triglycerides Hypercholesterolemia Migraines IBS (irritable bowel syndrome) DMII (diabetes mellitus, type 2) History of back problems Asthma Seasonal allergies Home Medications ?Medication ?Instructions ?Recorded ?Last Taken ?Type albuterol sulfate 90 mcg/actuation 2 puff inhalation Q6H PRN 04/22/22 Unknown History aerosol inhaler (Proventil HFA) shortness of breath or wheezing hydroxyzine pamoate 25 mg capsule 25 mg PO .QID PRN itching 04/22/22 Unknown History ipratropium 0.5 mg-albuterol 3 mg 3 ml inhalation Q4H PRN wheezing 04/22/22 Unknown History (2.5 mg base)/3 mL nebulization soln ondansetron HCl 8 mg tablet 8 mg PO TID PRN nausea and vomiting 04/22/22 Unknown History cyclobenzaprine 5 mg tablet 5 mg PO TID PRN muscle spasm #30 03/21/23 Unknown Rx tabs nystatin 100,000 unit/gram topical 1 applic topical TID PRN rash #15 08/27/22 Unknown Rx powder grams guaifenesin 600 mg tablet, 600 mg PO Q12H PRN congestion 03/17/23 Unknown History extended release 12 hr (Mucinex) lorazepam 1 mg tablet 1 mg PO QHS PRN anxiety #15 tabs 03/25/23 Unknown Rx blood-glucose meter,continuous #1 ea 08/04/23 Unknown Rx (FreeStyle [place]ano 3 [place]) blood-glucose sensor (FreeStyle #1 ea 08/04/23 Unknown Rx Tano 3 Sensor device) naproxen 500 mg tablet (Naprosyn) 500 mg PO BID PRN pain #10 tabs 09/04/23 Unknown Rx cariprazine 1.5 mg capsule 1.5 mg PO QHS #90 caps 01/19/24 Unknown Rx fluoxetine 40 mg capsule 40 mg PO QHS #90 caps 01/19/24 Unknown Rx topiramate 50 mg tablet See Rx Instructions .Route 01/19/24 Unknown Rx .COMPLEX #90 tabs ubrogepant 50 mg tablet (Ubrelvy) 50 mg PO ONCE #10 tabs 01/26/24 Unknown Rx doxepin 10 mg capsule 10 mg PO QHS #90 caps 03/08/24 Unknown Rx atorvastatin 20 mg tablet 20 mg PO QHS #90 tabs 04/12/24 Unknown Rx lisinopril 5 mg tablet 5 mg PO QHS #90 tabs 04/12/24 Unknown Rx tirzepatide 10 mg/0.5 mL 10 mg (0.5 mL) subcut QWEEK #2 mL 04/12/24 Unknown Rx subcutaneous pen injector insulin detemir U-100 100 unit/mL 15 unit (0.15 mL) subcut DAILY #15 04/15/24 Unknown Rx (3 mL) subcutaneous pen (Levemir mL FlexTouch U-100 Insulin) clotrimazole 1 % topical cream 1 applic topical Q8H #30 grams 05/12/24 Unknown Rx (Antifungal (clotrimazole)) fluconazole 200 mg tablet 200 mg PO DAILY #2 tabs 05/12/24 Unknown Rx (Diflucan) Allergy/AdvReac Type Severity Reaction Status Date / Time morphine Allergy Severe Vomiting Verified 05/12/24 00:13 [id number] (From Nubain) Allergy Severe Other Verified 05/12/24 00:13 prednisone Allergy Severe Hives Verified 05/12/24 00:13 Family History Mother Anxiety Asthma Arthritis Bowel disease Breast cancer Depression Myocardial infarction Heart disease Hypertension Mental disorder Sister Anxiety Asthma Depression Seizure disorder Grandmother Arthritis Diabetes Colon cancer Brother Asthma History of blood clots Mental disorder tbi Son Precancerous skin lesion Surgical History S/P excision of lipoma History of esophagogastroduodenoscopy History of total hysterectomy Hx of cholecystectomy History of partial hysterectomy Social History household members: spouse current occupational status: employed Smoking Status: Former smoker Electronic Cigarette Use: not used alcohol intake: current alcohol intake frequency: holidays/special occasions only substance use type: does not use what type of physical activity do you participate in: none do you feel safe at home: Yes ROS ROS ED ROS Narrative Denies recent illness. Constitutional Constitutional ED: Denies chills or fever(s) Eyes Eyes: Denies blurry vision ENT ENT ED: Denies ear pain Cardiovascular Cardiovascular: Denies chest pain Respiratory/Chest Respiratory/Chest: Denies cough or dyspnea Gastrointestinal Gastrointestinal: Denies abdominal pain Genitourinary Genitourinary ED: Denies dysuria or hematuria Musculoskeletal Musculoskeletal: Denies arthralgias or myalgias Integumentary Reports rash; Denies abscess or Abrasions Neurologic Neurologic: Denies headache(s) Psychiatric Psychiatric: Denies anxiety Endocrine Endocrinology: Denies heat intolerance Hematologic/Lymphatic Hematologic/Lymphatic: Denies easy bleeding, easy bruising or lymphadenopathy Allergic/Immunologic Allergic/Immunologic ED: Denies mouth swelling, tongue swelling or urticaria EXAM Physical Exam Narrative Exam Narrative: Well-appearing 54-year-old female. Vital signs are stable afebrile. She does not look septic toxic or in any distress. H EENT exam. Pupils are round and reactive to light. Extraocular motions intact. Neck nontender no lymphadenopathy. Lungs clear to auscultation bilaterally. Heart regular rhythm rate about 75 no murmur. Chest wall ribs nontender. Abdomen soft nontender. Moving all 4 extremities. Nontender no edema. Back nontender. Neurologically she is awake alert no focal motor deficit. With a nurse present in the room I examined her vaginal area. Patient's external vagina and labia majora was red and inflamed. No secondary infection. Consistent with a yeast infection. Currently no active discharge or bleeding. Const Vital Signs: 05/12/24 00:16 Temperature 97.9 F Temperature Source Oral Pulse Rate 76 Respiratory Rate 18 Blood Pressure 140/76 H Blood Pressure Mean 97 Pulse Ox 96 Oxygen Delivery Method Room Air Positive well nourished and well developed; Negative for cachectic, contractures or unkempt General Appearance ED: well developed and NAD; Negative for unkempt, cachectic, contractures or pallor Nutritional Appearance: Negative for cachectic HEENT Reports moist mucous membranes Eyes PERRL and EOMs intact bilaterally Neck no lymphadenopathy, supple and no JVD Chest Wall inspection of chest normal and palpation of chest normal Resp normal respiratory effort and clear to auscultation bilaterally Cardio regular rate, regular rhythm, S1 normal heart sound, no murmurs and no JVD GI normal to inspection, nondistended, normoactive bowel sounds, soft to palpation, non-tender, non-distended and no masses Palpation: Negative for tender, guarding or rigid Back/Spine no CVA tenderness Extremity normal to inspection and full ROM Neuro oriented x3 and CN's II-XII intact bilaterally Sensorium / Orientation: alert, oriented to person, oriented to place and oriented to time Psych mental status grossly normal Appearance: Negative for unkempt Attitude: No agitated Speech: No other Mood & Affect: Negative for depressed, anxious or tearful Skin no rashes or lesions noted and no wounds General Skin Exam: Negative for jaundice or pallor Rashes: No rashes noted Trauma: Negative for other MDM MDM MDM Narrative Medical decision making narrative: 54-year-old diabetic female is vaginal yeast infection. She will be given a dose of Diflucan here. Written a prescription for an antifungal cream. And Diflucan again in 5 to 7 days. Lab Data Attestation: I reviewed the patient's lab results. Lab results narrative: Blood sugar elevated 373. Known diabetic. Labs: Laboratory Results - last 24 hr 05/12/24 00:57 POC Glucose 373 H Discharge Plan Triage Chief Complaint: Complaint ED Provider: Lenin Mast Dx/Rx/DC Orders Clinical Impression: Vaginal yeast infection, History of diabetes mellitus, Hyperglycemia due to diabetes mellitus Instructions: ED [facility] Prescriptions: New fluconazole [Diflucan] 200 mg tablet 200 mg PO DAILY Qty: 2 0RF Rx Instructions: Take the Diflucan on Friday and Friday. 1 Diflucan 200 mg pill on Friday. 1 Diflucan 200 mg pill on Friday. clotrimazole [Antifungal (clotrimazole)] 1 % cream 1 applic topical Q8H Qty: 30 1RF Rx Instructions: Apply 2-3 times a day till the infection is gone. Keep the area dry. No Action cyclobenzaprine 5 mg tablet 5 mg PO TID PRN (Reason: muscle spasm) Qty: 30 1RF albuterol sulfate [Proventil HFA] 90 mcg/actuation HFA aerosol inhaler 2 puff inhalation Q6H PRN (Reason: shortness of breath or wheezing) ipratropium-albuterol 0.5 mg-3 mg(2.5 mg base)/3 mL solution for nebulization 3 ml inhalation Q4H PRN (Reason: wheezing) hydroxyzine pamoate 25 mg capsule 25 mg PO .QID PRN (Reason: itching) ondansetron HCl 8 mg tablet 8 mg PO TID PRN (Reason: nausea and vomiting) (DME) FreeStyle Tano 3 [place] Misc See Rx Instructions .Route Qty: 1 0RF Rx Instructions: As directed (DME) FreeStyle Tano 3 Sensor Device See Rx Instructions .Route Qty: 1 0RF Rx Instructions: As directed cariprazine 1.5 mg capsule 1.5 mg PO QHS Qty: 90 1RF fluoxetine 40 mg capsule 40 mg PO QHS Qty: 90 1RF topiramate 50 mg tablet See Rx Instructions .ROUTE .COMPLEX Qty: 90 1RF Dose Instruction: TAKE 1 TABLET BY MOUTH EVERY DAY Rx Instructions: TAKE 1 TABLET BY MOUTH EVERY DAY guaifenesin [Mucinex] 600 mg tablet extended release 12hr 600 mg PO Q12H PRN (Reason: congestion) naproxen [Naprosyn] 500 mg tablet 500 mg PO BID PRN (Reason: pain) Qty: 10 0RF nystatin 100,000 unit/gram powder 1 applic topical TID PRN (Reason: rash) Qty: 15 0RF lorazepam 1 mg tablet 1 mg PO QHS PRN (Reason: anxiety) Qty: 15 0RF Ubrelvy 50 mg tablet 50 mg PO ONCE Qty: 10 0RF Rx Instructions: as a single dose; may repeat once in >=2 hours after first dose if needed doxepin 10 mg capsule 10 mg PO QHS Qty: 90 1RF atorvastatin 20 mg tablet 20 mg PO QHS Qty: 90 1RF tirzepatide 10 mg/0.5 mL pen injector 10 mg subcut QWEEK Qty: 2 1RF lisinopril 5 mg tablet 5 mg PO QHS Qty: 90 1RF Rx Instructions: TAKE 1 TABLET BY MOUTH EVERY DAY Levemir FlexTouch U100 Insulin 100 unit/mL (3 mL) insulin pen 15 unit subcut DAILY Qty: 15 0RF Primary Care Provider: Stacey Talbert Referrals: Stacey Talbert MD [Primary Care Provider] - 3-5 Days if not improving Activity Restrictions/Additional Instructions: Keep the affected area dry and clean. Apply the antifungal cream at least twice a day if not 3 times a day till the infection is completely gone. I did give you a refill on the antifungal cream. The Diflucan pill I would take 1 on Friday and another 1 on Friday. Follow-up with your doctor if not improving. Return if worse. Print Language: German Disposition Disposition: Home, Self Care
[2024-05-12 01:15] LABS: Bedside Glucose 373 mg/dL (74-106)
[2024-05-12] MEDS: Fluconazole 100 MG Tablet 200 MG PO (01:20)
[2024-05-12 01:38] VITALS: BP 114/52; PULSE 62; RESP 16; TEMP 36.7; O2SAT 98
== END 2024-05-12 01:47 | disposition home or self-care (01) ==
PROVIDERS: Emergency Provider Emergency Medicine; PCP Internal Medicine; Visit Provider Emergency Medicine
DX: B37.31 Acute candidiasis of vulva and vagina (principal); E11.65 Type 2 diabetes mellitus with hyperglycemia; Z87.891 Personal history of nicotine dependence; E78.00 Pure hypercholesterolemia, unspecified; Z90.710 Acquired absence of both cervix and uterus; G47.33 Obstructive sleep apnea (adult) (pediatric); Z99.89 Dependence on other enabling machines and devices; F41.9 Anxiety disorder, unspecified; Z79.899 Other long term (current) drug therapy; Z79.85 Long-term (current) use of injectable non-insulin antidiabetic drugs; F32.A Depression, unspecified; Z90.49 Acquired absence of other specified parts of digestive tract
CPT/HCPCS: 82962; 99282

== ENCOUNTER 2024-06-04 03:39 | Emergency (ER) | payer OTHER, SELFPAY ==
[2024-06-04 03:40] VITALS: BP 108/59; PULSE 80; RESP 18; TEMP 37.1; O2SAT 95; BMI 47.4
--- NOTE | 2024-06-04 04:02 | CT_ITS ---
PROCEDURE: BRAIN/HEAD WITHOUT CONTRAST 06/04/2024 REASON FOR EXAM: HEADACHE TECHNIQUE: Head CT without intravenous contrast. Coronal and Sagittal reconstruction series were provided. One or more dose reduction techniques were used (e.g., Automated exposure control, adjustment of the mA and/or kV according to patient size, use of iterative reconstruction technique. RADIATION DOSE SUMMARY: CTDlvol: 20 mGy DLP: 696 mGycm. COMPARISON: None FINDINGS: There is no acute intracranial hemorrhage, mass effect or midline shift. There are no abnormal extra-axial fluid collections present. Ventricles and sulci are within normal limits. The calvarium is intact. Visualized paranasal sinuses are unremarkable. CT/Brain/Head without Contrast IMPRESSION: No acute intracranial hemorrhage, mass effect or midline shift. Reading Location: [id number]
--- NOTE | 2024-06-04 04:02 | CT_ITS ---
PROCEDURE: CTA HEAD AND NECK W/ CONTRAST 06/04/2024 REASON FOR EXAM: HEADACHE TECHNIQUE: CTA imaging of the head and neck from the aortic arch to the skull vertex with out constrast and with intravenous contrast. Coronal and Sagittal reconstruction series were provided. 3D post processing with reformations, Maximum intensity projection (MIPs) Volume rendering and Shaded surface rendering was provided. CONTRAST: Isovue 370 VOLUME: 100 mL One or more dose reduction techniques were used (e.g., Automated exposure control, adjustment of the mA and/or kV according to patient size, use of iterative reconstruction technique). RADIATION DOSE SUMMARY: CTDlvol: 19 mGy DLP: 696 mGycm COMPARISON: CT scan of the head on 06/04/2024. FINDINGS: Normal bilateral petrous carotid arteries. Normal right cavernous carotid artery with a normal supraclinoid bifurcation. Normal left cavernous carotid artery with a normal supraclinoid bifurcation. Normal right A1 segments of the anterior cerebral artery. Normal left A1 segments of the anterior cerebral artery. Normal intact anterior communicating artery (ACOM). Normal bilateral A2 segments of the anterior cerebral arteries. Normal right M1 and M2 segments of the middle cerebral arteries, with a normal M1 bifurcation. Normal left M1 and M2 segments of the middle cerebral arteries, with a normal M1 bifurcation. Normal right posterior communicating artery (PCOM). Normal left posterior communicating artery (PCOM). Normal bilateral vertebral arteries. Normal basilar artery with a normal basilar bifurcation. The visualized bilateral superior cerebellar (SCA) arteries are normal. Normal bilateral P1, P2 and visualized P3 segments of the posterior cerebral arteries. There is no demonstrated aneurysm of the [place]. There is no major vessel occlusion or hemodynamically significant stenosis. There is no demonstrated abnormality of the visualized brain. RIGHT CAROTID ARTERIES: Normal right common carotid artery (CCA). Normal right common carotid bulb. Normal origin of the right internal carotid (ICA) artery without a hemodynamically significant stenosis. Normal visualized cervical portion of the right internal carotid artery. Normal origin of the right external carotid artery (ECA). LEFT CAROTID ARTERIES: Normal left common carotid artery (CCA). Normal left common carotid bulb. Normal origin of the left internal carotid (ICA) artery without a hemodynamically significant stenosis. Normal visualized cervical portion of the left internal carotid artery. Normal origin of the left external carotid artery (ECA). VERTEBRAL ARTERIES: Normal bilateral vertebral artery without a hemodynamically significant stenosis. CT/CTA Head AND Neck W/ Contrast IMPRESSION: No evidence of hemodynamically significant stenosis. No aneurysm is identified. Reading Location[facility]
[2024-06-04] MEDS: 0.9% Normal Saline (1000mL) 1,000 ML 999 ML IV ×2 (04:12→05:40)
[2024-06-04] MEDS: HYDROmorphone 0.5 MG/0.5 ML SYRINGE IV (04:13)
[2024-06-04] MEDS: Metoclopramide 10 MG/2 ML Vial IV (04:13)
[2024-06-04] MEDS: DiphenhydrAMINE 50 MG/ML Syringe IV (04:25)
--- NOTE | 2024-06-04 04:27 | EDS_ITS ---
HPI History of Present Illness Chief Complaint: Headache Narrative Narrative: Chief complaint and HPI: 54-year-old female with past medical history of obesity, migraines, DM2, PTSD presents for evaluation of headache. 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 Headache is located left frontal. Associated symptom is photophobia, nausea, vomiting. Patient states this is similar to her previous migraines symptom joseph however usually her migraines do not develop as suddenly. She denies any neck pain or stiffness. Denies any fever, chills, shortness of breath, chest pain, abdominal pain, dysuria. Patient sugar via EMS was 414 patient states she recently had her diabetic medication changed and therefore her sugars have been high. She is currently working with her PCP. Patient denies any trauma or injury to the head. She is not on blood thinners. Denies any neurological deficit, numbness, tingling, weakness, LOC, syncope. Review of systems: See HPI Medications: As listed on the chart Allergies: As listed on the chart PFSH: Per chart Vital signs: As listed on the chart. Reviewed. Physical exam: Gen: A&O x3, sitting in a dark room, uncomfortable secondary to headache Head: Normocephalic, atraumatic Eyes: No sclera icterus, conjunctiva clear, PERRL, EOMI ENT: TMs clear BL, moist mucous membranes, posterior oropharynx unremarkable, uvula midline, no facial tenderness, no facial asymmetry Neck: Trachea midline, No JVD, Full ROM, nontender, no meningismus CV: RRR, no murmurs Resp: Lungs CTA BL, no w/r/c GI: Obese, abd soft, non-distended, non-tender, no r/r/g Musc: Full ROM, no deformity, strength +5/5 in all extremities Skin: Warm, diaphoretic, no rash Neuro: Alert, oriented, grossly intact, sensation intact Psych: Cooperative, appropriate mood and affect [facility] Medical History Wears glasses Fatty liver CPAP (continuous positive airway pressure) dependence Sleep apnea Shortness of breath on exertion Former smoker Major depressive disorder JESÚS (obstructive sleep apnea) Ectopic Binge eating disorder Renal cyst, acquired, right Obesity Depression Anxiety PTSD (post-traumatic stress disorder) Pityriasis versicolor Agoraphobia Insomnia Post-menopausal Vitamin B deficiency Vitamin D deficiency GERD (gastroesophageal reflux disease) History of pneumonia Osteoarthritis of lumbar spine Non-alcoholic fatty liver disease Kidney stones High triglycerides Hypercholesterolemia Migraines IBS (irritable bowel syndrome) DMII (diabetes mellitus, type 2) History of back problems Asthma Seasonal allergies Home Medications ?Medication ?Instructions ?Recorded ?Last Taken ?Type albuterol sulfate 90 mcg/actuation 2 puff inhalation Q 6H PRN 04/22/22 Unknown History aerosol inhaler (Proventil HFA) shortness of breath or wheezing hydroxyzine pamoate 25 mg capsule 25 mg PO .QID PRN it lowell 04/22/22 Unknown History ipratropium 0.5 mg-albuterol 3 mg 3 ml inhalation Q4H PRN wheezing 04/22/22 Unknown History (2.5 mg base)/3 mL nebulization soln ondansetron HCl 8 mg tablet 8 mg PO TID PRN nausea and vomiting 04/22/22 Unknown History cyclobenzaprine 5 mg tablet 5 mg PO TID PRN muscle spa sm #30 04/30/22 Unknown Rx tabs nystatin 100,000 unit/gram topical 1 applic topical TI D PRN rash #15 08/27/22 Unknown Rx powder grams guaifenesin 600 mg tablet, 600 mg PO Q12H PRN congesti on 03/17/23 Unknown History extended release 12 hr (Mucinex) lorazepam 1 mg tablet 1 mg PO QHS PRN anxiety #15 tabs 03/25/23 Unknown Rx blood-glucose meter,continuous #1 ea 08/04/23 Unknown Rx (FreeStyle Tano 3 [place]) blood-glucose sensor (FreeStyle #1 ea 08/04/23 Unknown Rx Tano 3 Sensor device) naproxen 500 mg tablet (Naprosyn) 500 mg PO BID PRN pa in #10 tabs 09/04/23 Unknown Rx cariprazine 1.5 mg capsule 1.5 mg PO QHS #90 caps 11/03 Unknown Rx fluoxetine 40 mg capsule 40 mg PO QHS #90 caps Unknown Rx topiramate 50 mg tablet See Rx Instructions .Route 1 03/21/23 Unknown Rx .COMPLEX #90 tabs ubrogepant 50 mg tablet (Ubrelvy) 50 mg PO ONCE #10 ta bs 01/26/24 Unknown Rx doxepin 10 mg capsule 10 mg PO QHS #90 caps Unknown Rx atorvastatin 20 mg tablet 20 mg PO QHS #90 tabs Unknown Rx lisinopril 5 mg tablet 5 mg PO QHS #90 tabs 5 Unknown Rx clotrimazole 1 % topical cream 1 applic topical Q8H #3 0 grams 05/12/24 Unknown Rx (Antifungal (clotrimazole)) fluconazole 200 mg tablet 200 mg PO DAILY PRN yeast Unknown History (Diflucan) metformin 500 mg tablet,extended 500 mg PO BID #60 tab s 05/28/24 Unknown Rx release 24 hr Allergy/AdvReac Type Severity Reaction Status Date / Time morphine Allergy Severe Vomiting Verified 06/04/24 03:49 nalbuphine (From Nubain) Allergy Severe Other Verified 06/04/24 03:49 prednisone Allergy Severe Hives Verified 06/04/24 03:49 Family History Mother Anxiety Asthma Arthritis Bowel disease Breast cancer Depression Myocardial infarction Heart disease Hypertension Mental disorder Sister Anxiety Asthma Depression Seizure disorder Grandmother Arthritis Diabetes Colon cancer Brother Asthma History of blood clots Mental disorder tbi Son Precancerous skin lesion Surgical History S/P excision of lipoma History of esophagogastroduodenoscopy History of total hysterectomy Hx of cholecystectomy History of partial hysterectomy Social History household members: spouse current occupational status: employed Smoking Status: Former smoker Electronic Cigarette Use: not used alcohol intake: current alcohol intake frequency: holidays/special occasions only substance use type: does not use what type of physical activity do you participate in: none do you feel safe at home: Yes EXAM Physical Exam Const Vital Signs: 06/04/24 03:40 06/04/24 04:35 06/04/24 05:23 Temperature 98.7 F Temperature Source Oral Pulse Rate 80 80 76 Respiratory Rate 18 14 16 Blood Pressure 108/59 L 138/83 H 129/83 H Blood Pressure Mean 75 101 98 Pulse Ox 95 93 96 Oxygen Delivery Method Room Air Room Air Room Air 06/04/24 07:00 Temperature Temperature Source Pulse Rate 61 Respiratory Rate 16 Blood Pressure 144/76 H Blood Pressure Mean 98 Pulse Ox 99 Oxygen Delivery Method Room Air MDM MDM MDM Narrative Medical decision making narrative: 54-year-old female with past medical history of obesity, migraines, DM2, PTSD presents for evaluation of headache. Associated symptoms are photophobia, nausea, vomiting. 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 Denies any neurological deficit, numbness, tingling, weakness, LOC, syncope, fever, neck pain/stiffness. Denies any injury or trauma. Not on blood thinners. They also deny personal history of intracranial hemorrhage (including SAH), aneurysm, or AV malformation. Differential diagnosis includes but is not limited to migraine, tension headache, symptomatic hyperglycemia, dehydration. Per the [place] SAH rule patient cannot be ruled out for subarachnoid hemorrhage therefore CT head and CTA head and neck ordered. NS bolus, morphine, Reglan, Benadryl ordered for symptoms. Basic labs ordered. CT head negative for any acute intracranial hemorrhage, mass effect or midline shift. CTA head and neck shows without aneurysm or significant stenosis. CBC without leukocytosis or anemia. BMP shows mild anion gap of 16 and hyperglycemia 511. I do not believe the patient to be in DKA. [id number] glucose 449. Patient was recently taken off of her Lantus given her insurance. This is likely the cause of her hyperglycemia. Another NS bolus ordered. 10 units subcutaneous insulin ordered. Will repeat glucose and BMP after. On reexamination, patient's headache has improved. Repeat blood pressure still in the 400s. Repeat BMP show s resolved anion gap. Patient's sugar is 466. IV insulin ordered. Will repeat glucose. Repeat glucose 419. Given patient's hyperglycemia, her PCP was contacted and patient was discussed. She confirmed that patient was taken off of her insulin secondary to insurance reasons. She states that the patient was supposed to call her insurance to see what insulin was covered. For now, plan will be to place patient on Januvia 100 mg daily per PCP. She needs to call her insurance company today to obtain information about insulin coverage. She is to follow-up in the office next week. Patient was updated on all the results and the plan. She confirmed understanding. Her headache has improved. She was educated to monitor her glucose at home. Return back to the ED if symptoms change or worsen. She is supposed to increase her metformin to twice daily today. Impression: 1. Migraine headache 2. Hyperglycemia with known DM2 Lab Data Labs: Laboratory Results - last 24 hr 06/04/24 06/04/24 06/04/24 03:58 04:20 05:30 WBC 8.3 RBC 4.08 L Hgb 12.1 Hct 36.4 L MCV 89.2 MCH 29.7 MCHC 33.2 RDW Std Deviation 39.4 RDW Coeff of [place] 12.1 Plt Count 196 MPV 12.1 H Immature Gran % (Auto) 1.600 H Neut % (Auto) 59.7 Lymph % (Auto) 29.4 [place] % (Auto) 7.2 Eos % (Auto) 1.1 Baso % (Auto) 1.0 Absolute Neuts (auto) 5.0 Absolute Lymphs (auto) 2.44 Nucleated RBC % 0 Sodium 136 Potassium 3.8 Chloride 102 Carbon Dioxide 19.0 L Anion Gap 16 H BUN 18 Creatinine 0.78 Estim Creat Clear Calc 110.47 Est GFR (MDRD) Non-Af 92 BUN/Creatinine Ratio 23.7 H Glucose 511 H* Calcium 9.4 POC Glucose 449 H 06/04/24 06/04/24 07:02 07:08 WBC RBC Hgb Hct MCV MCH MCHC RDW Std Deviation RDW Coeff of [place] Plt Count MPV Immature Gran % (Auto) Neut % (Auto) Lymph % (Auto) [place] % (Auto) Eos % (Auto) Baso % (Auto) Absolute Neuts (auto) Absolute Lymphs (auto) Nucleated RBC % Sodium 137 Potassium 4.4 Chloride 105 Carbon Dioxide 19.0 L Anion Gap 14 BUN 16 Creatinine 0.75 Estim Creat Clear Calc 114.89 Est GFR (MDRD) Non-Af 97 BUN/Creatinine Ratio 20.9 H Glucose 466 H* Calcium 8.4 POC Glucose 433 H Radiography Diagnostic Testing: Clinical Impression(s) from Imaging Studies Brain CT 06/04/24 04:02 IMPRESSION: No acute intracranial hemorrhage, mass effect or midline shift. Reading Location: [id number] Head/Neck CTA 06/04/24 04:02 IMPRESSION: No evidence of hemodynamically significant stenosis. No aneurysm is identified. Reading Location: [place] [id number] Discharge Plan Triage Chief Complaint: Headache ED Provider: Ismael Ochoa Dx/Rx/DC Orders Prescriptions: No Action cyclobenzaprine 5 mg tablet 5 mg PO TID PRN (Reason: muscle spasm) Qty: 30 1RF albuterol sulfate [Proventil HFA] 90 mcg/actuation HFA aerosol inhaler 2 puff inhalation Q6H PRN (Reason: shortness of breath or wheezing) ipratropium-albuterol 0.5 mg-3 mg(2.5 mg base)/3 mL solution for nebulization 3 ml inhalation Q4H PRN (Reason: wheezing) hydroxyzine pamoate 25 mg capsule 25 mg PO .QID PRN (Reason: itching) ondansetron HCl 8 mg tablet 8 mg PO TID PRN (Reason: nausea and vomiting) (DME) FreeStyle Tano 3 [place] Misc See Rx Instructions .Route Qty: 1 0RF Rx Instructions: As directed (DME) FreeStyle Tano 3 Sensor Device See Rx Instructions .Route Qty: 1 0RF Rx Instructions: As directed cariprazine 1.5 mg capsule 1.5 mg PO QHS Qty: 90 1RF fluoxetine 40 mg capsule 40 mg PO QHS Qty: 90 1RF topiramate 50 mg tablet See Rx Instructions .ROUTE .COMPLEX Qty: 90 1RF Dose Instruction: TAKE 1 TABLET BY MOUTH EVERY DAY Rx Instructions: TAKE 1 TABLET BY MOUTH EVERY DAY fluconazole [Diflucan] 200 mg tablet 200 mg PO DAILY PRN (Reason: yeast) Rx Instructions: Take the Diflucan on Friday and Friday. 1 Diflucan 200 mg pill on Friday. 1 Diflucan 200 mg pill on Friday. metformin 500 mg tablet extended release 24 hr 500 mg PO BID Qty: 60 0RF guaifenesin [Mucinex] 600 mg tablet extended release 12hr 600 mg PO Q12H PRN (Reason: congestion) naproxen [Naprosyn] 500 mg tablet 500 mg PO BID PRN (Reason: pain) Qty: 10 0RF clotrimazole [Antifungal (clotrimazole)] 1 % cream 1 applic topical Q8H Qty: 30 1RF Rx Instructions: Apply 2-3 times a day till the infection is gone. Keep the area dry. nystatin 100,000 unit/gram powder 1 applic topical TID PRN (Reason: rash) Qty: 15 0RF lorazepam 1 mg tablet 1 mg PO QHS PRN (Reason: anxiety) Qty: 15 0RF Ubrelvy 50 mg tablet 50 mg PO ONCE Qty: 10 0RF Rx Instructions: as a single dose; may repeat once in >=2 hours after first dose if needed doxepin 10 mg capsule 10 mg PO QHS Qty: 90 1RF atorvastatin 20 mg tablet 20 mg PO QHS Qty: 90 1RF lisinopril 5 mg tablet 5 mg PO QHS Qty: 90 1RF Rx Instructions: TAKE 1 TABLET BY MOUTH EVERY DAY Primary Care Provider: Stacey Talbert Referrals: Stacey Talbert MD [Primary Care Provider] - Print Language: [place]
[2024-06-04 04:35] VITALS: BP 138/83; PULSE 80; RESP 14; O2SAT 93
[2024-06-04 04:36] LABS: Absolute Lymphocyte Count 2.44 X10^3/uL (0.83-4.51); Basophil# 0.08 X10^3/uL; Eosinophil# 0.09 X10^3/uL; Eosinophils% 1.1 % (0-5); Hematocrit 36.4 % (37-47); Hemoglobin 12.1 g/dL (12.0-15.0); Lymphocyte # 2.44 X10^3/ul (0.83-4.51); Lymphocyte % 29.4 % (19-41); Mean Corp Hgb Conc 33.2 g/dL (32-36); Mean Corpuscular Hgb 29.7 pg (27.0-32.0); Mean Corpuscular Volume 89.2 fL (81-99); Mean Platelet Vol. 12.1 fl (6.2-12.0); Monocyte% 7.2 % (0-10); NRBC Flagged by Analyzer 0 % (0-5); Neutrophil # 4.95 X10^3/uL (2.7-7.7); Neutrophil % 59.7 % (47-70); Platelet Count 196 K/mm3 (150-450); RBC Distribution Width CV 12.1 % (11.6-14.6); RBC Distribution Width SD 39.4 fl (35.1-43.9); Red Blood Count 4.08 M/mm3 (4.2-5.4); White Blood Count 8.3 K/mm3 (4.4-11.0)
[2024-06-04 05:20] LABS: Anion Gap 16 (5-15); BUN 18 mg/dL (4-19); BUN/Creat Ratio 23.7 RATIO (10-20); Calcium,Total 9.4 mg/dL (7.6-11.0); Chloride 102 mmol/L (98-108); Creatinine, Serum 0.78 mg/dL (0.70-1.20); EST Glomerular Filtration Rate 92 (>60); Estimated Creatinine Clearance 110.47 ml/min (50-250); Glucose 511 mg/dL (70-99); Potassium 3.8 mmol/L (3.3-5.1); Sodium Level 136 mmol/L (133-145)
[2024-06-04 05:23] VITALS: BP 129/83; PULSE 76; RESP 16; O2SAT 96
[2024-06-04] MEDS: Insulin Lispro 100 UNIT/ML INSULN.PEN 10 UNIT SC (05:40)
[2024-06-04 05:52] LABS: Bedside Glucose 449 mg/dL (74-106)
[2024-06-04 07:00] VITALS: BP 144/76; PULSE 61; RESP 16; O2SAT 99
[2024-06-04 07:26] LABS: Bedside Glucose 433 mg/dL (74-106)
[2024-06-04] MEDS: Insulin Lispro 100 UNIT/ML VIAL (ADMELOG) IV (07:57)
[2024-06-04 08:01] LABS: Anion Gap 14 (5-15); BUN 16 mg/dL (4-19); BUN/Creat Ratio 20.9 RATIO (10-20); Calcium,Total 8.4 mg/dL (7.6-11.0); Chloride 105 mmol/L (98-108); Creatinine, Serum 0.75 mg/dL (0.70-1.20); EST Glomerular Filtration Rate 97 (>60); Estimated Creatinine Clearance 114.89 ml/min (50-250); Glucose 466 mg/dL (70-99); Potassium 4.4 mmol/L (3.3-5.1); Sodium Level 137 mmol/L (133-145)
[2024-06-04] MEDS: Ketorolac 15 MG/ML Vial IV (08:37)
[2024-06-04] MEDS: Ondansetron 4 MG/2 ML Vial IV (08:37)
[2024-06-04 08:55] VITALS: BP 133/74; PULSE 87; RESP 16; O2SAT 98
[2024-06-04 09:01] LABS: Bedside Glucose 419 mg/dL (74-106)
== END 2024-06-04 09:14 | disposition home or self-care (01) ==
PROVIDERS: Emergency Provider Surgery; PCP Internal Medicine; Visit Provider Surgery
DX: G43.909 Migraine, unspecified, not intractable, without status migrainosus (principal); E11.65 Type 2 diabetes mellitus with hyperglycemia; E66.9 Obesity, unspecified; E78.00 Pure hypercholesterolemia, unspecified; Z87.891 Personal history of nicotine dependence; K21.9 Gastro-esophageal reflux disease without esophagitis; J45.909 Unspecified asthma, uncomplicated; Z79.84 Long term (current) use of oral hypoglycemic drugs
CPT/HCPCS: 70450; 70496; 70498; 80048; 82962; 85025; 96361; 96374; 96375; 99285; Q9967; A4216; J2405

== ENCOUNTER → 2024-06-08 | Outpatient (CLI) | payer OTHER, SELFPAY ==
[2024-06-08 16:19] LABS: ALB/GLOB Ratio 1.5 RATIO (0.9-2.4); AST(SGOT) 20 U/L (<=31); Alanine Aminotransfer ALT/SGPT 36 U/L (<=34); Albumin, Serum 3.8 g/dL (3.5-5.0); Alkaline Phosphatase 82 U/L (35-104); Anion Gap 11 (5-15); BUN 13 mg/dL (4-19); BUN/Creat Ratio 18.8 RATIO (10-20); Calcium,Total 8.9 mg/dL (7.6-11.0); Carbon Dioxide 21.5 mmol/L (21.0-32.0); Chloride 108 mmol/L (98-108); EST Glomerular Filtration Rate 104 (>60); Globulin 2.6 g/dL (2.2-4.2); Glucose 182 mg/dL (70-99); Potassium 4.2 mmol/L (3.3-5.1); Protein, Total 6.4 g/dL (5.9-8.4); Sodium Level 140 mmol/L (133-145); Total Bilirubin 0.25 mg/dL (0.00-1.30)
[2024-06-08 18:09] LABS: Erythrocyte Sedimentation Rate 23 mm/hr (0-30)
== END | disposition home or self-care (01) ==
LOC: LAB 15:08
PROVIDERS: PCP Internal Medicine; Referring Provider Internal Medicine; Visit Provider Internal Medicine
DX: R51.9 Headache, unspecified (principal)
CPT/HCPCS: 36415; 80053; 84443; 85652